=== PATIENT | male | born 1980 | race Caucasian/White ===

== ENCOUNTER 2018-05-15 23:54 | Emergency (ER) | payer OTHER ==
[2018-05-16 00:50] LABS: Absolute Lymphocytes (CBC) 1.9 K/uL (0.7-4.9); Absolute Monocytes 2.1 K/uL (0.1-1.3); Absolute Neutrophil 7.8 K/uL (1.8-8.0); Basophils % 0.6 % (0-1.3); Eosinophils % 0.3 % (0-4.4); Hematocrit 43.9 % (39.6-49.0); Lymphocytes % 16.1 % (15.3-44.8); MCH 29.3 pg (27.0-35.0); MCV 83.5 fL (80-100); MPV 9.2 fL (7.6-11.3); Monocytes % 17.7 % (3.3-12.3); RBC Red Blood Cell Count 5.25 M/uL (4.33-5.43)
[2018-05-16 00:54] LABS: Protime INR 1.23
[2018-05-16 01:14] LABS: Blood Morphology Comment NOT SEEN (NOT SEEN); Platelet Estimate ADEQ
[2018-05-16 01:35] LABS: Albumin 3.4 g/dL (3.4-5.0); Bilirubin Direct 0.2 mg/dL (0-0.2); Bilirubin Total 0.5 mg/dL (0.2-1.0); Magnesium 2.2 mg/dL (1.8-2.4); Protein, Total 7.8 g/dL (6.4-8.2)
[2018-05-16] MEDS ORDERED: CLINDAMYCIN 900MG/D5W 900 MG/50 ML BAG IV ONE (01:47)
--- NOTE | 2018-05-16 02:23 | ER ---
Nurse's Notes [facility] Name: Patricio Zamora Age: 37 yrs Sex: Male : 1980 Arrival Date: 05/15/2018 Time: 23:57 Bed 6 Private MD: Diagnosis: Cellulitis of left lower limb Presentation: 05/16 00:15 Presenting complaint: Patient states: "I've been sick for the past couple days and tl2 today I noticed a pain in my left leg and then I saw this redness and my left foot is swollen.". Transition of care: patient was not received from another setting of care. Onset of symptoms was May 14, 2018. Risk Assessment: Do you want to hurt yourself or someone else? Patient reports no desire to harm self or others. Initial Sepsis Screen: Does the patient meet any 2 criteria? No. Patient's initial sepsis screen is negative. Does the patient have a suspected source of infection? No. Patient's initial sepsis screen is negative. Care prior to arrival: None. 00:15 Method Of Arrival: Wheelchair tl2 00:15 Acuity: DOMINGO 3 tl2 Triage Assessment: 00:16 General: Appears in no apparent distress. uncomfortable, Behavior is calm, cooperative, tl2 appropriate for age. Pain: Complains of pain in left schuler and anterior aspect of left ankle Pain does not radiate. Pain currently is 6 out of 10 on a pain scale. Neuro: Level of Consciousness is awake, alert, obeys commands, Oriented to person, place, time, situation. Cardiovascular: Edema is 1+ to left ankle and left foot. Derm: Skin is pink, warm \\T\\ dry. Rash noted that is red, raised, on left schuler and anterior aspect of left ankle. Historical: - Allergies: 00:16 No Known Allergies; tl2 - Home Meds: 00:16 None [Active]; tl2 - PMHx: 00:16 None; tl2 - PSHx: 00:16 Cholecystectomy; tl2 - Immunization history:: Adult Immunizations up to date. - Social history:: Smoking status: Patient uses tobacco products, denies chronic smoking, but will smoke occasionally. - Ebola Screening: : No symptoms or risks identified at this time. Screenin:18 Abuse screen: Denies threats or abuse. Nutritional screening: No deficits noted. tl2 Tuberculosis screening: No symptoms or risk factors identified. Fall Risk None identified. Assessment: 00:20 General: Appears in no apparent distress. comfortable, obese, Behavior is calm, bp cooperative, appropriate for age. Pain: Complains of pain in lateral aspect of left calf and left schuler. Neuro: Level of Consciousness is awake, alert, obeys commands, Oriented to person, place, time, situation, Appropriate for age. Cardiovascular: No deficits noted. Respiratory: Airway is patent Respiratory effort is even, unlabored, Respiratory pattern is regular, symmetrical. GI: No signs and/or symptoms were reported involving the gastrointestinal system. : No signs and/or symptoms were reported regarding the genitourinary system. EENT: No deficits noted. Derm: Skin temperature is warm Rash noted that is red, on lateral aspect of left calf, medial aspect of left calf and left schuler. Musculoskeletal: Circulation, motion, and sensation intact. Range of motion: intact in all extremities. 01:02 Reassessment: U/S EN ROUTE. ALL CURRENT STUDIES IN PROCESS. bp 01:51 Reassessment: PT JG WITH U/S. bp 02:34 Reassessment: PT D/C HOME AMBULATORY, DX WITH LLE CELLULITIS. bp Vital Signs: 00:16 BP 136 / 80; Pulse 107; Resp 20; Temp 98.8(O); Pulse Ox 98% on R/A; Weight 136.08 kg; tl2 Height 6 ft. 2 in. (187.96 cm); Pain 6/10; 01:01 BP 115 / 78; Pulse 94; Resp 14; Pulse Ox 97% ; bp 02:37 BP 127 / 89; Pulse 91; Resp 14; Pulse Ox 99% ; bp 00:16 Body Mass Index 38.52 (136.08 kg, 187.96 cm) tl2 ED Course: 05/15 23:57 Patient arrived in ED. es 05/16 00:09 Rajan Ye PA is PHCP. cp 00:09 Rajan Melvin MD is Attending Physician. cp 00:16 Triage completed. tl2 00:16 Arm band placed on right wrist. tl2 00:18 Patient has correct armband on for positive identification. Placed in gown. Bed in low tl2 position. Call light in reach. Side rails up X 1. 00:19 Alonso Flores, SERGEY is Primary Nurse. bp 00:33 Inserted saline lock: 20 gauge in right forearm, using aseptic technique. Blood bp collected. 02:05 Patient moved back from ultrasound. jessie 02:17 US Extremity Venous Unilateral Ltd In Process Unspecified. EDMS 02:33 No provider procedures requiring assistance completed. IV discontinued, intact, bp bleeding controlled, No redness/swelling at site. Pressure dressing applied. Administered Medications: 01:46 Drug: Clindamycin 900 mg Route: IVPB; Infused Over: 30 mins; Site: right forearm; bp 02:34 Follow up: IV Status: Completed infusion; IV Intake: 50ml bp 02:31 Drug: Potassium Effervescent Tablet 50 mEq Route: PO; bp 02:32 Follow up: Response: No adverse reaction bp 02:32 Drug: Bactrim (160 mg-800 mg (DS) 1 tablet Route: PO; bp 02:32 Follow up: Response: No adverse reaction bp Intake: 02:34 IV: 50ml; Total: 50ml. bp Outcome: 02:22 Discharge ordered by MD. cp 02:33 Discharged to home ambulatory. bp 02:33 Condition: stable 02:33 Discharge instructions given to patient, Instructed on discharge instructions, follow up and referral plans. medication usage, Demonstrated understanding of instructions, follow-up care, medications, Prescriptions given X 3. 02:38 Patient left the ED. bp Signatures: Dispatcher [employer] Kate Vigil Corey, PA PA Jose D Cat jd, Taylor RN RN tl2 Alonso Flores RN RN bp
--- NOTE | 2018-05-16 02:23 | EDPHYS ---
Physician Documentation [facility] Name: Patricio Zamora Age: 37 yrs Sex: Male : 1980 Arrival Date: 05/15/2018 Time: 23:57 Bed 6 Private MD: ED Physician Rajan Melvin HPI: 05/16 00:28 This 37 yrs old Male presents to ER via Wheelchair with complaints of WANT TO cp RULE OUT BLOOD CLOT IN LT LEG. 00:28 The patient presents with pain, that is acute, swelling, tenderness. cp 00:28 The complaints affect the left lower leg. Context: resulted from an unknown cause, the cp patient can fully bear weight, the patient is able to ambulate, with mild difficulty. 00:28 Onset: The symptoms/episode began/occurred today. cp 00:28 Associated signs and symptoms: Pertinent positives: calf tenderness, warmth, Pertinent cp negatives fever, numbness, vomiting, weakness. Treatment prior to arrival includes: no previous treatment. Severity of symptoms: in the emergency department the symptoms are unchanged, despite home interventions. Historical: - Allergies: 00:16 No Known Allergies; tl2 - Home Meds: 00:16 None [Active]; tl2 - PMHx: 00:16 None; tl2 - PSHx: 00:16 Cholecystectomy; tl2 - Immunization history:: Adult Immunizations up to date. - Social history:: Smoking status: Patient uses tobacco products, denies chronic smoking, but will smoke occasionally. - Ebola Screening: : No symptoms or risks identified at this time. ROS: 00:35 Constitutional: Negative for body aches, chills, fever, poor PO intake. cp 00:35 Eyes: Negative for injury, pain, redness, and discharge. cp 00:35 ENT: Negative for drainage from ear(s), ear pain, sore throat, difficulty swallowing, difficulty handling secretions. 00:35 Cardiovascular: Negative for chest pain, palpitations. 00:35 Respiratory: Negative for cough, shortness of breath, wheezing. 00:35 Abdomen/GI: Negative for abdominal pain, nausea, vomiting, and diarrhea, black/tarry stool, rectal bleeding. 00:35 Back: Negative for pain at rest, pain with movement, radiated pain. 00:35 MS/extremity: Positive for erythema, pain, swelling, tenderness, warmth, of the left lower leg, Negative for paresthesias. 00:35 Neuro: Negative for altered mental status, headache, syncope, near syncope, weakness. 00:35 All other systems are negative. Exam: 00:40 Constitutional: The patient appears in no acute distress, alert, awake, non-toxic, well cp developed, well nourished, obese. 00:40 Head/Face: Normocephalic, atraumatic. cp 00:40 Eyes: Periorbital structures: appear normal, Conjunctiva: normal, no exudate, no injection, Sclera: no appreciated abnormality, Lids and lashes: appear normal, bilaterally. 00:40 ENT: External ear(s): are unremarkable, Nose: is normal, Mouth: Lips: moist, Oral mucosa: pink and intact, moist, Posterior pharynx: is normal, airway is patent, no erythema, no exudate. 00:40 Neck: ROM/movement: is normal, is supple, without pain, no range of motions limitations, no nuchal rigidity. 00:40 Chest/axilla: Inspection: normal, Palpation: is normal, no crepitus, no tenderness. 00:40 Cardiovascular: Rate: tachycardic, Rhythm: regular. 00:40 Respiratory: the patient does not display signs of respiratory distress, Respirations: normal, no use of accessory muscles, no retractions, no splinting, no tachypnea, labored breathing, is not present, Breath sounds: are clear throughout, no decreased breath sounds, no stridor, no wheezing. 00:40 Abdomen/GI: Inspection: abdomen appears normal, Palpation: abdomen is soft and non-tender, in all quadrants. 00:40 Musculoskeletal/extremity: Extremities: grossly normal except: noted in the left lower leg: erythema, pain, swelling, tenderness, ROM: full passive range of motion, in the left leg, Perfusion: the extremity is normally perfused throughout, Sensation intact. 00:40 Skin: cellulitis, that is moderate, well demarcated, on the left lower leg. 00:40 Neuro: Orientation: to person, place \T\ time. Mentation: lucid, able to follow commands, Cerebellar function: is grossly normal, Motor: moves all fours, strength is normal, Sensation: no obvious gross deficits, Gait: is steady. 00:45 ECG was reviewed by the Attending Physician. cp Vital Signs: 00:16 BP 136 / 80; Pulse 107; Resp 20; Temp 98.8(O); Pulse Ox 98% on R/A; Weight 136.08 kg; tl2 Height 6 ft. 2 in. (187.96 cm); Pain 6/10; 01:01 BP 115 / 78; Pulse 94; Resp 14; Pulse Ox 97% ; bp 02:37 BP 127 / 89; Pulse 91; Resp 14; Pulse Ox 99% ; bp 00:16 Body Mass Index 38.52 (136.08 kg, 187.96 cm) tl2 MDM: 00:09 Patient medically screened. cp 02:21 Data reviewed: vital signs, nurses notes, lab test result(s), radiologic studies, cp ultrasound. 02:21 Differential diagnosis: cellulitis, abscess, sepsis, DVT. Counseling: I had a detailed cp discussion with the patient and/or guardian regarding: the historical points, exam findings, and any diagnostic results supporting the discharge/admit diagnosis, lab results, radiology results, the need for outpatient follow up, a family practitioner, to return to the emergency department if symptoms worsen or persist or if there are any questions or concerns that arise at home. Response to treatment: the patient's symptoms have mildly improved after treatment, and as a result, I will discharge patient. 05/16 00:21 Order name: CBC with Diff; Complete Time: 01: cp 05/16 01:19 Interpretation: Normal except: WBC 12.0; MN% 17.7; MNA 2.1. cp 05/16 00:21 Order name: BMP; Complete Time: : cp 05/16 01:45 Interpretation: Normal except: K 3.0; GFR 75; CA 8.1. cp 05/16 00:21 Order name: PT-INR; Complete Time: 01: cp 05/16 00:21 Order name: Ptt, Activated; Complete Time: : cp 05/16 00:21 Order name: LFT's; Complete Time: :44 cp 05/16 00:21 Order name: Magnesium; Complete Time: : cp 05/16 00:19 Order name: US Extremity Venous Unilateral Ltd cp 05/16 00:21 Order name: EKG; Complete Time: 00:21 cp 05/16 00:21 Order name: EKG - Nurse/Tech; Complete Time: 00:44 cp 05/16 00:53 Order name: Manual Differential; Complete Time: 01:18 EDMA 05/16 01:19 Interpretation: Normal except: BANDS [F] 8; LYM 10; MONO 18. cp 05/16 01:19 Order name: Blood Culture Adult (2) cp 05/16 00:21 Order name: IV; Complete Time: 00:33 cp 05/16 02:21 Order name: Misc. Order: outline area of erythema; Complete Time: 02:23 cp EC:45 Rate is 93 beats/min. Rhythm is regular. FL interval is normal. QRS interval is normal. cp QT interval is normal. Interpreted by me. Reviewed by me. Administered Medications: 01:46 Drug: Clindamycin 900 mg Route: IVPB; Infused Over: 30 mins; Site: right forearm; bp 02:34 Follow up: IV Status: Completed infusion; IV Intake: 50ml bp 02:31 Drug: Potassium Effervescent Tablet 50 mEq Route: PO; bp 02:32 Follow up: Response: No adverse reaction bp 02:32 Drug: Bactrim (160 mg-800 mg (DS) 1 tablet Route: PO; bp 02:32 Follow up: Response: No adverse reaction bp Disposition: 05/16/18 02:22 Discharged to Home. Impression: Cellulitis of left lower limb. - Condition is Stable. - Discharge Instructions: Cellulitis, Adult. - Prescriptions for Clindamycin HCl 300 mg Oral Capsule - take 1 capsule by ORAL route every 6 hours for 10 days; 40 capsule. Ibuprofen 800 mg Oral Tablet - take 1 tablet by ORAL route every 8 hours As needed take with food; 30 tablet. Bactrim DS 800- 160 mg Oral Tablet - take 1 tablet by ORAL route every 12 hours for 10 days; 20 tablet. - Medication Reconciliation Form, Thank You Letter, Antibiotic Education, Prescription Opioid Use form. - Follow up: Private Physician; When: 48 Hours; Reason: Recheck today's complaints. - Problem is new. - Symptoms have improved. Addendum: 05/18/2018 06:32 Co-signature as Attending Physician, Rajan Melvin MD I agree with the assessment and c mccormack plan of care. Signatures: Dispatcher [employer] [facility] Rajan Melvin MD MD cha Page, Corey, PA PA Fany Avila RN RN tl2 Sandra, Alonso, RN RN bp Corrections: (The following items were deleted from the chart) 05/16 01:19 01:18 Normal except: WBC 12.0; MN% 17.7. cp cp 01:45 01:45 Normal except: K 3.0; GFR 75. cp cp 02:38 02:22 05/16/2018 02:22 Discharged to Home. Impression: Cellulitis of left lower limb. bp Condition is Stable. Forms are Medication Reconciliation Form, Thank You Letter, Antibiotic Education, Prescription Opioid Use. Follow up: Private Physician; When: 48 Hours; Reason: Recheck today's complaints. Problem is new. Symptoms have improved. cp
[2018-05-16] MEDS ORDERED: POTASSIUM 25 MEQ EFFERV TAB ONE (02:31)
[2018-05-16] MEDS ORDERED: SMZ./TMP. 800/160 MG TABLET ONE (02:31)
--- NOTE | 2018-05-16 08:30 | EKG ---
Test Date: 2018-05-16 Test Time: 00:37:35 Security Associate: BP MEASUREMENT RESULTS: Intervals: Rate: 93 TX: 124 QRSD: 94 QT: 354 QTc: 440 [place]: P: 56 TX: 124 QRS: 13 T: 40 INTERPRETIVE STATEMENTS: Normal sinus rhythm Possible Left atrial enlargement Incomplete right bundle branch block Borderline ECG Compared to ECG 11/19/2017 09:22:10 Short TX interval no longer present Electronically Signed On 05-16-18 08:29:48 CDT by Franky Nelson
--- NOTE | 2018-05-16 09:12 | RAD REPORT ---
EXAM DESCRIPTION: ERICA VENOUS UNI LTD05/16/2018 2:17 am CLINICAL HISTORY: left leg pain and swelling. COMPARISON: None. FINDINGS: Left common femoral, superficial femoral, popliteal and posterior tibial veins are compre ssible and demonstrate augmentation. Doppler demonstrates good flow. A 4.6 x 1.5 x 3.8 centimeter left inguinal lymph node is present. It is nonspecific but may be reacti ve in nature. This could be monitored on physical examination to assess stability/resolution IMPRESSION: No evidence of deep venous thrombosis involving the left lower extremity.
== END 2018-05-16 02:38 | disposition home or self-care (01) ==
LOC: ER 23:54
DX: L03.116 Cellulitis of left lower limb (principal); E66.9 Obesity, unspecified; Z68.38 Body mass index [BMI] 38.0-38.9, adult; Z72.0 Tobacco use
CPT/HCPCS: 36415; 80048; 80076; 83735; 85025; 85610; 85730; 87040; 93005; 93971; 96365; 99284

== ENCOUNTER 2018-05-19 22:26 | Inpatient (IN) | payer OTHER ==
--- NOTE | 2018-05-20 00:07 | ER ---
Nurse's Notes [facility] Name: Patricio Zamora Age: 37 yrs Sex: Male : 1980 Arrival Date: 05/19/2018 Time: 22:31 Bed 20 Private MD: Diagnosis: Cellulitis of left lower limb Presentation: 05/19 22:46 Presenting complaint: Patient states: Redness, swelling, drainage from left lower leg; lp1 Seen here on Friday, began antibiotics, redness to area has increased and began draining; Denies any fever at home. Transition of care: patient was not received from another setting of care. Onset of symptoms was May 19, 2018. Risk Assessment: Do you want to hurt yourself or someone else? Patient reports no desire to harm self or others. Initial Sepsis Screen: Does the patient meet any 2 criteria? No. Patient's initial sepsis screen is negative. Does the patient have a suspected source of infection? No. Patient's initial sepsis screen is negative. Care prior to arrival: None. 22:46 Method Of Arrival: Ambulatory lp1 22:46 Acuity: DOMINGO 3 lp1 Historical: - Allergies: 22:52 No Known Allergies; lp1 - Home Meds: 22:52 Bactrim DS 800-160 mg Oral tab 1 tab 2 times per day [Active]; clindamycin HCl 300 mg lp1 Oral cap 1 cap every 6 hours [Active]; - PMHx: 22:52 None; lp1 - PSHx: 22:52 Cholecystectomy; lp1 - Immunization history:: Adult Immunizations up to date. - Social history:: Smoking status: Patient uses tobacco products, smokes one-half pack cigarettes per day. - Ebola Screening: : No symptoms or risks identified at this time. Screenin:52 Abuse screen: Denies threats or abuse. Denies injuries from another. Nutritional lp1 screening: No deficits noted. Tuberculosis screening: No symptoms or risk factors identified. Fall Risk None identified. Assessment: 23:00 General: Appears in no apparent distress. comfortable, well groomed, well developed, kr2 well nourished, Behavior is calm, cooperative, appropriate for age. Pain: Complains of pain in left leg Pain does not radiate. Pain currently is 3 out of 10 on a pain scale. Quality of pain is described as aching, tender, Is continuous, Alleviated by nothing. Neuro: Level of Consciousness is awake, alert, obeys commands, Oriented to person, place, time, situation, Intact. Cardiovascular: Capillary refill < 3 seconds in bilateral fingers Patient's skin is warm and dry. Respiratory: Airway is patent Respiratory effort is even, unlabored, Respiratory pattern is regular, symmetrical. GI: Abdomen is flat, non-distended. : Denies burning with urination. EENT: Oral mucosa is moist. Derm: Skin is intact, erythma, swelling and scabbing to left lower leg. Musculoskeletal: Circulation, motion, and sensation intact. 05/20 00:00 Reassessment: Patient appears in no apparent distress at this time. Patient and/or kr2 family updated on plan of care and expected duration. Pain level reassessed. Patient is alert, oriented x 3, equal unlabored respirations, skin warm/dry/pink. 00:53 Reassessment: Patient appears in no apparent distress at this time. Patient and/or kr2 family updated on plan of care and expected duration. Pain level reassessed. Patient is alert, oriented x 3, equal unlabored respirations, skin warm/dry/pink. Vital Signs: 05/19 22:50 BP 145 / 85; Pulse 101; Resp 18; Temp 98.2(O); Pulse Ox 97% on R/A; Weight 127.01 kg; lp1 Height 6 ft. 2 in. (187.96 cm); Pain 4/10; 05/20 00:53 BP 115 / 68; Pulse 94; Resp 18; Pulse Ox 98% on R/A; kr2 02:00 BP 123 / 70; Pulse 89; Resp 18; Pulse Ox 100% on R/A; Pain 2/10; mg2 05/19 22:50 Body Mass Index 35.95 (127.01 kg, 187.96 cm) lp1 ED Course: 05/19 22:31 Patient arrived in ED. am2 22:50 Triage completed. lp1 22:50 Arm band placed on left wrist. lp1 22:51 Nilson Castillo MD is Attending Physician. tw4 23:00 Patient has correct armband on for positive identification. Bed in low position. Call kr2 light in reach. Side rails up X 1. Pulse ox on. NIBP on. Door closed. Warm blanket given. Head of bed elevated. 23:40 Inserted saline lock: 20 gauge in left antecubital area, using aseptic technique. Blood kr2 collected. 05/20 00:01 Lanette Sierra, RN is Primary Nurse. kr2 00:05 Luz Apple MD is Hospitalizing Provider. tw4 01:42 Judson Feldman, RN is Primary Nurse. mg2 09:26 Inserted saline lock: 20 gauge in left hand, using aseptic technique. em1 Administered Medications: 00:49 Drug: NS 0.9% 1000 ml Route: IV; Rate: 1 bolus; Site: left antecubital; kr2 04:08 Follow up: IV Status: Completed infusion; IV Intake: 1000ml bp 00:49 Drug: Zosyn 3.375 grams Route: IVPB; Infused Over: 60 mins; Site: left antecubital; kr2 04:08 Follow up: IV Status: Completed infusion; IV Intake: 100ml bp 01:48 CANCELLED (Other Intervention Used): vancoMYCIN 1 grams IVPB once over 2 hrs bb 04:08 Drug: vancoMYCIN 2 grams Route: IVPB; Rate: calculated rate; Site: left antecubital; bp Intake: 04:08 IV: 100ml; Total: 100ml. bp 04:08 IV: 1000ml; Total: 1100ml. bp Outcome: 00:07 Decision to Hospitalize by Provider. tw4 11:42 Patient left the ED. ph Signatures: Waylon King em1 Shikha Deshpande, RN RN lp1 Cesia Velarde RN RN Ruthann Zaidi am2 Alonso Flores RN RN bp Lanette Sierra, RN RN kr2 Nilson Castillo MD MD tw4 Judson Feldman, SERGEY RN mg2 Doreen Mcleod RN bb
--- NOTE | 2018-05-20 00:07 | EDPHYS ---
Physician Documentation [facility] Name: Patricio Zamora Age: 37 yrs Sex: Male : 1980 Arrival Date: 05/19/2018 Time: 22:31 Bed 20 Private MD: ED Physician Nilson Castillo HPI: 05/20 02:29 This 37 yrs old Male presents to ER via Ambulatory with complaints of Leg tw4 Swelling - Worsening infection. 02:29 The patient presents with swelling, tenderness. The complaints affect the lateral tw4 aspect of left calf, left calf, medial aspect of left calf and left schuler. Context: The problem was sustained at home. Onset: The symptoms/episode began/occurred. 02:30 Onset: The symptoms/episode began/occurred 3 day(s) ago. Modifying factors: The tw4 symptoms are alleviated by nothing. the symptoms are aggravated by nothing. Associated signs and symptoms: The patient has no apparent associated signs or symptoms. Treatment prior to arrival includes: antibiotics. Severity of symptoms: At their worst the symptoms were moderate, in the emergency department the symptoms are unchanged. The patient has not experienced similar symptoms in the past. Historical: - Allergies: 05/19 22:52 No Known Allergies; lp1 - Home Meds: 22:52 Bactrim DS 800-160 mg Oral tab 1 tab 2 times per day [Active]; clindamycin HCl 300 mg lp1 Oral cap 1 cap every 6 hours [Active]; - PMHx: 22:52 None; lp1 - PSHx: 22:52 Cholecystectomy; lp1 - Immunization history:: Adult Immunizations up to date. - Social history:: Smoking status: Patient uses tobacco products, smokes one-half pack cigarettes per day. - Ebola Screening: : No symptoms or risks identified at this time. ROS: 05/20 02:30 Constitutional: Negative for fever, chills, and weight loss, Cardiovascular: Negative tw4 for chest pain, palpitations, and edema, Respiratory: Negative for shortness of breath, cough, wheezing, and pleuritic chest pain, Abdomen/GI: Negative for abdominal pain, nausea, vomiting, diarrhea, and constipation. Skin: Negative for injury, rash, and discoloration, Neuro: Negative for headache, weakness, numbness, tingling, and seizure. MS/extremity: Positive for erythema, swelling, tenderness. Exam: 02:30 Constitutional: This is a well developed, well nourished patient who is awake, alert, tw4 and in no acute distress. Head/Face: Normocephalic, atraumatic. Chest/axilla: Normal chest wall appearance and motion. Nontender with no deformity. No lesions are appreciated. Cardiovascular: Regular rate and rhythm with a normal S1 and S2. No gallops, murmurs, or rubs. Normal PMI, no JVD. No pulse deficits. Respiratory: Lungs have equal breath sounds bilaterally, clear to auscultation and percussion. No rales, rhonchi or wheezes noted. No increased work of breathing, no retractions or nasal flaring. Abdomen/GI: Soft, non-tender, with normal bowel sounds. No distension or tympany. No guarding or rebound. No evidence of tenderness throughout. Back: No spinal tenderness. No costovertebral tenderness. Full range of motion. Neuro: Awake and alert, GCS 15, oriented to person, place, time, and situation. Cranial nerves II-XII grossly intact. Motor strength 5/5 in all extremities. Sensory grossly intact. Cerebellar exam normal. Normal gait. 02:30 Musculoskeletal/extremity: Extremities: noted in the lateral aspect of left calf, left calf, medial aspect of left calf and left schuler: erythema, pain, swelling, tenderness. 02:30 Psych: Awake, alert, with orientation to person, place and time. Behavior, mood, and tw4 affect are within normal limits. Vital Signs: 05/19 22:50 BP 145 / 85; Pulse 101; Resp 18; Temp 98.2(O); Pulse Ox 97% on R/A; Weight 127.01 kg; lp1 Height 6 ft. 2 in. (187.96 cm); Pain 4/10; 05/20 00:53 BP 115 / 68; Pulse 94; Resp 18; Pulse Ox 98% on R/A; kr2 02:00 BP 123 / 70; Pulse 89; Resp 18; Pulse Ox 100% on R/A; Pain 2/10; mg2 05/19 22:50 Body Mass Index 35.95 (127.01 kg, 187.96 cm) lp1 MDM: 05/19 22:51 Patient medically screened. tw4 05/20 02:30 Differential diagnosis: contusion, abrasion, tendonitis. Data reviewed: vital signs, tw4 nurses notes. Data interpreted: monitoring analyst: rhythm is normal sinus rhythm, Pulse oximetry: Interpretation: normal. Counseling: I had a detailed discussion with the patient and/or guardian regarding: the historical points, exam findings, and any diagnostic results supporting the discharge/admit diagnosis, lab results. Physician consultation: Luz Apple MD regarding admission, to the medical/surgical unit. patient's condition, need to evaluate the patient as soon as possible, and will see patient in inpatient room. 05/19 23:21 Order name: CBC with Diff tw4 05/19 23:21 Order name: CMP tw4 05/19 23:21 Order name: Blood Culture Adult (2) tw4 05/20 00:36 Order name: Manual Differential EDMS 05/20 00:53 Order name: CBC with Automated Diff EDMS 05/20 00:53 Order name: Comprehensive Metabolic Panel EDMS 05/20 00:50 Order name: CONS Pharmacy Consult EDMS 05/20 00:53 Order name: Lipase EDMS 05/20 00:53 Order name: Magnesium EDMS 05/20 00:53 Order name: Phosphorus EDMS 05/19 23:21 Order name: Saline Lock; Complete Time: 00:02 tw4 05/20 00:50 Order name: CONS Physician Consult EDMS 05/20 00:50 Order name: Consistent Carb (ADA) 1800 Leon EDMS Administered Medications: 00:49 Drug: NS 0.9% 1000 ml Route: IV; Rate: 1 bolus; Site: left antecubital; kr2 04:08 Follow up: IV Status: Completed infusion; IV Intake: 1000ml bp 00:49 Drug: Zosyn 3.375 grams Route: IVPB; Infused Over: 60 mins; Site: left antecubital; kr2 04:08 Follow up: IV Status: Completed infusion; IV Intake: 100ml bp 01:48 CANCELLED (Other Intervention Used): vancoMYCIN 1 grams IVPB once over 2 hrs bb 04:08 Drug: vancoMYCIN 2 grams Route: IVPB; Rate: calculated rate; Site: left antecubital; bp Disposition: 05/20/18 00:07 Hospitalization ordered by Luz Apple for Inpatient Admission. Preliminary diagnosis is Cellulitis of left lower limb. - Bed requested for Telemetry/MedSurg (Inpatient). - Status is Inpatient Admission. ph - Condition is Stable. - Problem is an ongoing problem. - Symptoms have worsened. UTI on Admission? No Signatures: Dispatcher [employer] EDMS Amanda Henriquez, RN SERGEY kl Doreen Mcleod, RN SERGEY bb Shikha Deshpande, RN RN lp1 Cesia Velarde, RN RN ph Fany Ramos, RN RN tl2 Alonso Flores, RN Lanette Langley RN RN kr2 Wadley, Terrence, MD MD tw4 Corrections: (The following items were deleted from the chart) 01:48 05/19 23:21 vancoMYCIN 1 grams IVPB once over 2 hrs ordered. tw4 05/20 02:31 02:30 Constitutional: Negative for fever, chills, and weight loss, Cardiovascular: tw4 Negative for chest pain, palpitations, and edema, Respiratory: Negative for shortness of breath, cough, wheezing, and pleuritic chest pain, Abdomen/GI: Negative for abdominal pain, nausea, vomiting, diarrhea, and constipation, Back: Negative for injury and pain, MS/Extremity: Negative for injury and deformity, Skin: Negative for injury, rash, and discoloration, Neuro: Negative for headache, weakness, numbness, tingling, and seizure, tw4 04:26 00:07 Hospitalization Ordered by Luz Apple MD for Inpatient Admission. Preliminary tl2 diagnosis is Cellulitis of left lower limb. Bed requested for Telemetry/MedSurg (Inpatient). Status is Inpatient Admission. Condition is Stable. Problem is an ongoing problem. Symptoms have worsened. UTI on Admission? No. tw4 10:19 04:26 05/20/2018 00:07 Hospitalization Ordered by Luz Apple MD for Inpatient kl Admission. Preliminary diagnosis is Cellulitis of left lower limb. Bed requested for [facility] ER HOLD. Status is Inpatient Admission. Condition is Stable. Problem is an ongoing problem. Symptoms have worsened. UTI on Admission? No. tl2 11:42 10:19 05/20/2018 00:07 Hospitalization Ordered by Luz Apple MD for Inpatient ph Admission. Preliminary diagnosis is Cellulitis of left lower limb. Bed requested for Telemetry/MedSurg (Inpatient). Status is Inpatient Admission. Condition is Stable. Problem is an ongoing problem. Symptoms have worsened. UTI on Admission? No. kl
[2018-05-20 00:12] LABS: Absolute Lymphocytes (CBC) 2.9 K/uL (0.7-4.9); Absolute Monocytes 2.1 K/uL (0.1-1.3); Absolute Neutrophil 10.8 K/uL (1.8-8.0); Basophils % 0.9 % (0-1.3); Eosinophils % 2.2 % (0-4.4); Hematocrit 41.8 % (39.6-49.0); MCH 29.3 pg (27.0-35.0); MCV 85.3 fL (80-100); MPV 8.9 fL (7.6-11.3); Monocytes % 12.8 % (3.3-12.3)
[2018-05-20] MEDS ORDERED: NA CHLORIDE 0.9% 1,000 ML ONE (00:43)
[2018-05-20] MEDS ORDERED: PIPER/TAZO/NS 3.375gm 3.375 GM/100 ML BAG ONE ×2 (00:43→05:02)
[2018-05-20] MEDS ORDERED: ONDANSETRON 4 MG/2 ML VIAL IV PRN (00:46)
[2018-05-20 00:52] LABS: Albumin 3.1 g/dL (3.4-5.0); Bilirubin Total 0.4 mg/dL (0.2-1.0); Potassium 3.1 mmol/L (3.5-5.1)
[2018-05-20] MEDS: NA CHLORIDE 0.9% 1,000 ML IV SCH ×2 (01:00→12:03)
[2018-05-20 01:02] LABS: Blood Morphology Comment NOT SEEN (NOT SEEN); Platelet Estimate ADEQ
[2018-05-20] MEDS ORDERED: VANCOMYCIN 2 GM in NA CHLORIDE 0.9% 500 ML IVPB SCH (02:00)
[2018-05-20] MEDS ORDERED: VANCOMYCIN 1 GM/VIAL ONE (02:52)
[2018-05-20] MEDS ORDERED: NA CHLORIDE 0.9% 250 ML ONE (02:52)
[2018-05-20] MEDS ORDERED: PIPER/TAZO/NS 3.375gm 3.375 GM/100 ML BAG IVPB SCH (06:00)
[2018-05-20] MEDS ORDERED: ACETAMINOPHEN 325 MG TABLET ONE (07:40)
[2018-05-20] MEDS ORDERED: ACETAMINOPHEN 500 MG TAB ONE (07:42)
[2018-05-20] MEDS: ACETAMINOPHEN 500 MG TAB PO PRN ×2 (07:55→18:58)
[2018-05-20] MEDS ORDERED: MORPHINE 4 MG/ML SYR ONE (08:33)
[2018-05-20] MEDS: MORPHINE 4 MG/ML SYR IV PRN ×4 (08:43→22:30)
[2018-05-20] MEDS: PIPER/TAZO/NS 3.375gm 3.375 GM/100 ML BAG IVPB SCH ×2 (09:00→17:36)
--- NOTE | 2018-05-20 09:27 | P.HP ---
Certification for Inpatient Patient admitted to: Inpatient With expected LOS: >2 Midnights Patient will require the following post-hospital care: None Practitioner: I am a practitioner with admitting privileges, knowledge of patient current condition, hospital course, and medical plan of care. Services: Services provided to patient in accordance with Admission requirements found in Title 42 Section 412.3 of the Code of Federal Regulations Patient History Date of Service: 05/20/18 Reason for admission: Left lower extremity cellulitis History of Present Illness: Patient is a 37-year-old gentleman who came to the hospital with cellulitis of the left lower extremity. Patient's left leg has become erythematous and edematous. Patient's left leg has slowly worsened. Patient came to the hospital for further evaluation. Patient states he was wearing boots and it scraped his left leg. He is not sure if it happened while working out. However he did seem to a slough off the 1st layer of his skin on the back of his leg. He has developed a cellulitis. He has been admitted to the hospital for further evaluation. Allergies No Known Allergies Allergy (Unverified 05/20/18 07:36) Home Medications: Clindamycin HCl 300 mg PO Q6H 05/20/18 Smz./Tmp. [Bactrim Ds 800 MG/160 MG*] 160 - 800 mg PO BID 05/20/18 - Past Medical/Surgical History Past Medical History: Patient denies medical history -: CHOLECYSTECTOMY - Family History Father Medical History: Other (see notes) Notes: LEUKEMIA - Social History Smoking Status: Current every day smoker Alcohol use: No CD- Drugs: No Caffeine use: Yes Place of Residence: Home Review of Systems 10-point ROS is otherwise unremarkable Physical Examination - Vital Signs Temperature: 99.9 F Blood Pressure: 125/53 Pulse: 100 Respirations: 14 Pulse Ox (%): 96 - Physical Exam General: Alert, In no apparent distress, Oriented x3 HEENT: Atraumatic, PERRLA, Mucous membr. moist/pink, EOMI, Sclerae nonicteric Neck: Supple, 2+ carotid pulse no bruit, No LAD, Without JVD or thyroid abnormality Respiratory: Clear to auscultation bilaterally, Normal air movement Cardiovascular: Regular rate/rhythm, Normal S1 S2, No murmurs Gastrointestinal: Normal bowel sounds, Soft and benign, Non-distended, No tenderness, No rebound, No guarding Musculoskeletal: No clubbing, No swelling, No tenderness Integumentary: No rashes, Skin lesion, Tenderness/swelling, Erythema Neurological: Normal gait, Normal speech, Normal strength at 5/5 x4 extr, Normal tone, Sensation intact, Cranial nerves 3-12 intact, Normal affect Lymphatics: No axilla or inguinal lymphadenopathy - Studies Laboratory Data (last 24 hrs) 05/19/18 23:55: Sodium 141, Potassium 3.1 L, BUN 9, Creatinine 1.10, Glucose 99 , Total Bilirubin 0.4, AST 35, ALT 90 H, Alkaline Phosphatase 127 H 05/19/18 23:55: WBC 16.3 H D, Hgb 14.3, Hct 41.8, Plt Count 407 H D Assessment & Plan - Problems (Diagnosis) (1) Cellulitis of left lower extremity Current Visit: Yes Status: Acute - Plan 1. Continue with IV antibiotic 2. Continue with local wound care 3. Wound care consultation 4. Gentle IV hydration 5. Monitor CBC 6. Strict blood sugar monitoring 7. Pain control 8. GI and DVT prophylaxis Discharge Plan: Home Plan to discharge in: Greater than 2 days - Advance Directives Does patient have a Living Will: No Does patient have a Durable POA for Healthcare: No - Code Status/Comfort Care Code Status Assessed: Yes Code Status: Full Code Critical Care: No Time Spent Managing PTS Care (In Minutes): 55
[2018-05-20 11:34] LABS: Absolute Lymphocytes (CBC) 2.9 K/uL (0.7-4.9); Absolute Monocytes 1.9 K/uL (0.1-1.3); Absolute Neutrophil 10.2 K/uL (1.8-8.0); Basophils % 1.3 % (0-1.3); Eosinophils % 1.5 % (0-4.4); Hematocrit 37.9 % (39.6-49.0); Lymphocytes % 18.9 % (15.3-44.8); MCH 29.4 pg (27.0-35.0); MCV 84.8 fL (80-100); MPV 8.4 fL (7.6-11.3); Monocytes % 12.5 % (3.3-12.3); RBC Red Blood Cell Count 4.46 M/uL (4.33-5.43)
[2018-05-20 11:48] LABS: Albumin 2.7 g/dL (3.4-5.0); Bilirubin Total 0.4 mg/dL (0.2-1.0); Magnesium 2.1 mg/dL (1.8-2.4); Phosphorus 2.8 mg/dL (2.5-4.9); Potassium 3.7 mmol/L (3.5-5.1); Protein, Total 7.2 g/dL (6.4-8.2)
[2018-05-20 12:35] LABS: Blood Morphology Comment NOT SEEN (NOT SEEN); Platelet Estimate ADEQ
[2018-05-20] MEDS: VANCOMYCIN 2 GM in NA CHLORIDE 0.9% 500 ML IVPB SCH (14:56)
--- NOTE | 2018-05-20 15:44 | P.PN ---
Date of Service: 05/20/18 Patient seen and examined chart reviewed and case discussed with RN patient is admitted for lower extremity cellulitis. Physical exam vital signs stable afebrile General awake alert oriented x3, obese male in some mild distress CV S1-S2 no murmurs Respiratory clear to auscultation bilaterally no wheezing Abdomen soft nontender nondistended positive bowel sounds. Extremities no clubbing cyanosis. + lower extremity edema. Neuro nonfocal skin right lower extremity erythema and warmth Labs reviewed Assessment and plan 1. Left lower extremity cellulitis: Will continue IV antibiotics and follow up on cultures.
--- NOTE | 2018-05-20 17:10 | CON ---
INFECTIOUS DISEASE CONSULT History Of Present Illness: This is a 37-year-old male with no other medical history, coming in with left lower extremity cellulitis. The patient denies any history of diabetes mellitus. Prior histor y of infected infection in the lower leg, has been treated in the past with Bactrim and clindamycin. Continue to have discomfort in the leg. Past Medical History: None. Surgical History: Cholecystectomy 12 years ago. Social History: Nonsmoker, nondrinker. Family History: Noncontributory. Medication: Vancomycin and Zosyn. See MARs for other medication. Allergies: NO KNOWN DRUG ALLERGIES. Review of Systems: A 10-point review was performed. Physical Examination: General: This is a 37-year-old male, lying in bed, not in any acute cardiopulmonary distress. Vital Signs: Temperature 97, pulse 87, respiration 24, blood pressure 140/84. HEENT: Unremarkable. Neck: Supple. Lungs: Clear to auscultation. Heart: S1, S2. Regular. Abdomen: Soft, nontender. Bowel sounds positive. Extremity: 2+ edema with erythematous changes to the left leg, increased tenderness and warmth. Laboratory Data: Shows WBC 15.5, hemoglobin 13.1, platelets 386. Chemistry shows sodium 141, potass ium 3.5, chloride 108, bicarb 25, BUN 8, creatinine 1, glucose is 84. Micro data: Blood cultures ar e pending. Assessment And Plan: Left lower extremity cellulitis with leukocytosis. Continue IV antibiotic, can be switched to oral once the blood cultures are negative and leukocytosis has subsided. Total cours e is 2 weeks. We will follow the patient as needed. NF/MODL Voice ID: [id number] Report ID: [id number]
[2018-05-21] MEDS: PIPER/TAZO/NS 3.375gm 3.375 GM/100 ML BAG IVPB SCH ×3 (00:18→16:31)
[2018-05-21] MEDS: VANCOMYCIN 2 GM in NA CHLORIDE 0.9% 500 ML IVPB SCH ×2 (02:36→15:00)
[2018-05-21] MEDS: NA CHLORIDE 0.9% 1,000 ML IV SCH ×2 (02:43→16:35)
[2018-05-21] MEDS: MORPHINE 4 MG/ML SYR IV PRN ×5 (02:57→22:57)
[2018-05-21] MEDS: ACETAMINOPHEN 500 MG TAB PO PRN (03:04)
[2018-05-21 04:30] LABS: Absolute Lymphocytes (CBC) 2.1 K/uL (0.7-4.9); Absolute Monocytes 1.7 K/uL (0.1-1.3); Absolute Neutrophil 7.6 K/uL (1.8-8.0); Basophils % 1.3 % (0-1.3); Eosinophils % 1.9 % (0-4.4); Hematocrit 36.9 % (39.6-49.0); Lymphocytes % 17.6 % (15.3-44.8); MCH 29.4 pg (27.0-35.0); MCV 85.5 fL (80-100); MPV 8.1 fL (7.6-11.3); Monocytes % 14.2 % (3.3-12.3); RBC Red Blood Cell Count 4.32 M/uL (4.33-5.43)
[2018-05-21 04:39] LABS: Albumin 2.6 g/dL (3.4-5.0); Bilirubin Total 0.6 mg/dL (0.2-1.0); Protein, Total 7.3 g/dL (6.4-8.2)
--- NOTE | 2018-05-21 07:06 | EKG ---
Test Date: 2018-05-20 Test Time: 16:22:03 Net Ui Developer: JONATHAN MEASUREMENT RESULTS: Intervals: Rate: 102 MA: 138 QRSD: 100 QT: 362 QTc: 471 Ramer: P: 52 MA: 138 QRS: 10 T: 32 INTERPRETIVE STATEMENTS: Sinus tachycardia Otherwise normal ECG Compared to ECG 05/16/2018 00:37:35 Sinus rhythm no longer present Incomplete right bundle-branch block no longer present Electronically Signed On 05-21-18 07:05:33 CDT by Lewis Hodge
--- NOTE | 2018-05-21 07:53 | RAD REPORT ---
EXAM DESCRIPTION: Bryant Single View05/21/2018 6:33 am CLINICAL HISTORY: Cough COMPARISON: October 2017 FINDINGS: The lungs appear clear of acute infiltrate. The heart is normal size IMPRESSION: No acute abnormalities displayed
[2018-05-21] MEDS: VANCOMYCIN 2.25 GM in NA CHLORIDE 0.9% 500 ML IVPB SCH (16:31)
--- NOTE | 2018-05-21 19:09 | PN ---
Date of Progress Note: 05/21/2018 Subjective: The patient seen and examined. Chart reviewed and case discussed with RN. The patient states his swelling has improved as the erythema in his left lower leg pain is controlled with medica tions. No chills, fevers. Review of Systems: Negative except as above. Medications: List reviewed. Physical Examination: Vital Signs: Temperature 99, heart rate 97, blood pressure 143/84, respirations 18, O2 of 99% on maria dolores m air. General: Awake, alert, oriented x3, not in any acute distress. Obese male. BMI 35.9. CV: S1 and S2. No murmurs. Regular rate and rhythm. Peripheral pulses present. Respiratory: Clear to auscultation bilaterally. No wheezing. Gastrointestinal: Abdomen is soft, nontender, nondistended. Positive bowel sounds. Extremities: No clubbing, cyanosis. Left lower extremity edema. Neurologic: Nonfocal. Skin: Left lower extremity erythema, improving, warm to touch. Laboratory Data: Sodium 139, potassium 4, chloride 106, CO2 of 28, BUN 7, creatinine 1, glucose 100, calcium 8.1. WBC 11.7, H and H are 12.7 and 36.9, platelets 397. Blood cultures, no growth to date . Chest x-ray shows no acute abnormalities, personally reviewed. Assessment And Plan: A 37-year-old male with: 1.Left lower extremity cellulitis. 2.Obesity. BMI 35.1. 3.Hypokalemia, replaced. 4.Elevated liver enzymes, likely due to fatty liver disease. I would recommend outpatient ultrasoun d and diet modification. 5.Moderate protein-calorie malnutrition. Albumin 2.6. Plan: Continue IV antibiotics. Blood cultures are negative. White count is trending down. The pat ient's erythema and swelling are improving. We will continue with ambulation. Likely discharge in n ext 24 to 48 hours once improves. SA/MODL Voice ID: [id number] Report ID: [id number]
--- NOTE | 2018-05-21 19:25 | PN ---
Subjective: The patient lying in bed. Denies any headache, nausea, vomiting, chest pain, abdominal pain, constipation, or diarrhea. Continue to have discomfort in the left leg, especially when he sta nds. Objective: Vital Signs: Temperature 99, pulse 97, respiration 18, blood pressure 143/84. Lungs: Clear to auscultation. Heart: S1, S2. Regular. Abdomen: Soft, nontender. Bowel sounds positive. Extremity: Erythematous changes with edematous changes noted on the left leg all the way up to knee. Laboratory Data: WBC is coming down 11.7, hemoglobin 12.7, platelets 397. Chemistry shows sodium 13 9, potassium 4, chloride 106, bicarb 28, BUN 7, creatinine 1, glucose is 84. Blood cultures are nega tive. Current Medications: Include Zosyn and vancomycin. Assessment And Plan: Left lower extremity cellulitis. Leukocytosis improving. Lower extremity disc omfort is improving. Continue antibiotic and supportive care, total course of 2 weeks. We will foll ow the patient as needed. NF/MODL Voice ID: [id number] Report ID: [id number]
[2018-05-22] MEDS: PIPER/TAZO/NS 3.375gm 3.375 GM/100 ML BAG IVPB SCH ×3 (01:36→19:00)
[2018-05-22] MEDS: MORPHINE 4 MG/ML SYR IV PRN ×3 (03:11→15:46)
[2018-05-22] MEDS: VANCOMYCIN 2.25 GM in NA CHLORIDE 0.9% 500 ML IVPB SCH ×2 (05:03→15:45)
[2018-05-22] MEDS: NA CHLORIDE 0.9% 1,000 ML IV SCH ×2 (06:20→19:40)
[2018-05-22 06:45] LABS: Albumin 2.6 g/dL (3.4-5.0); Bilirubin Total 0.5 mg/dL (0.2-1.0); Potassium 3.8 mmol/L (3.5-5.1); Protein, Total 7.7 g/dL (6.4-8.2)
[2018-05-22 06:48] LABS: Absolute Lymphocytes (CBC) 2.4 K/uL (0.7-4.9); Absolute Monocytes 1.4 K/uL (0.1-1.3); Absolute Neutrophil 6.2 K/uL (1.8-8.0); Basophils % 1.2 % (0-1.3); Eosinophils % 2.2 % (0-4.4); Hematocrit 37.1 % (39.6-49.0); Lymphocytes % 23.2 % (15.3-44.8); MCH 29.7 pg (27.0-35.0); MCV 85.1 fL (80-100); Monocytes % 13.8 % (3.3-12.3); RBC Red Blood Cell Count 4.35 M/uL (4.33-5.43)
[2018-05-22] MEDS: HYDROCODONE/APAP 7.5/325 MG TAB PO PRN (19:57)
--- NOTE | 2018-05-22 21:27 | PN ---
Subjective: Patient lying in bed, continued to have pain in his left leg especially when standing. Objective: Vital signs: Temperature 97.8, pulse 96, respirations 18, blood pressure 145/83. Denies any headache, nausea, vomiting, chest pain, abdominal pain, constipation, diarrhea. Lungs: Clear t o auscultation. Heart: S1, S2. Regular. Abdomen: Soft, nontender. Bowel sounds positive. Extre mity: Left lower extremity with erythematous changes and edematous changes and increased warmth, oth erwise unremarkable. Laboratory Data: WBC 10.3, hemoglobin 12.9, platelets are 465. Micro data; blood cultures, no growt h. Current Medications: Include Zosyn and vancomycin. Assessment And Plan: Left lower extremity cellulitis. Leukocytosis has resolved. Continue antibiot ic. Can be switched to oral antibiotic on discharge. We will consider starting the patient on Levaq uin and doxycycline. Keep leg elevated. Continue supportive care. NF/MODL Voice ID: [id number] Report ID: [id number]
--- NOTE | 2018-05-22 23:12 | PN ---
Date of Progress Note: 05/22/2018 Subjective: The patient seen and examined. Chart reviewed and case discussed with RN and Dr. Call . The patient still having significant amount of pain and swelling when getting up, difficult for hi m to ambulate, redness is improved, but not completely resolved. Review of Systems: Negative except as above. Medications: List reviewed. Physical Examination: Vital Signs: Temperature 97.8, heart rate 96, blood pressure 145/83, respirations 18, O2 95% on room air. General: Awake, alert, oriented x3. Some mild distress, obese male. BMI 35.9. CV: S1, S2. No murmurs. Regular rate and rhythm. Peripheral pulses present. Respiratory: Moving air well bilaterally. No wheezing. Gastrointestinal: Abdomen is soft, nontender, nondistended. Positive bowel sounds. Extremities: No clubbing, cyanosis. Left lower extremity edema. Skin: Left lower extremity erythema, warm to the touch. Some mild tenderness to palpation. Neuro: Nonfocal. Laboratory Data: Sodium 139, potassium 3.8, chloride 105, CO2 29, BUN 7, creatinine 1, glucose 91, c alcium 8, AST 48, ALT 126, total bilirubin 0.5, alkaline phosphatase 121, albumin 2.6. WBC 10.3, H a nd H 12.9 and 37.1, platelets 265, neutrophils 59%, monocytes 13%. Blood cultures, no growth to date . Assessment And Plan: A 37-year-old male with: 1.Left lower extremity cellulitis, acute. Still having significant amount of pain, swelling, and er ythema, which has slightly improved. We will continue with IV antibiotics. Stool cultures negative to date. We will continue elevation and use ice pack. 2.Elevated liver enzymes, likely due to fatty liver disease. We will obtain abdominal ultrasound. Check hepatitis panel. 3.Obesity. BMI 35. 4.Hypokalemia, replaced. 5.Moderate protein-calorie malnutrition. Albumin 2.6. Plan: Continue IV antibiotics. Follow up on cultures, likely discharge in the next 24 to 48 hours o nce continues to improve. Encourage ambulation as tolerated. SA/MODL Voice ID: [id number] Report ID: [id number]
[2018-05-23] MEDS: PIPER/TAZO/NS 3.375gm 3.375 GM/100 ML BAG IVPB SCH ×2 (00:39→09:15)
[2018-05-23] MEDS: NA CHLORIDE 0.9% 1,000 ML IV SCH ×2 (00:40→09:00)
[2018-05-23] MEDS: VANCOMYCIN 2.25 GM in NA CHLORIDE 0.9% 500 ML IVPB SCH ×2 (04:08→16:00)
[2018-05-23 04:32] LABS: ALT/SGPT 107 U/L (12-78); AST/SGOT 40 U/L (15-37); Albumin 2.5 g/dL (3.4-5.0); Alkaline Phosphatase 113 U/L (45-117); BUN Blood Urea Nitrogen 8 mg/dL (7-18); Bicarbonate 22 mmol/L (21-32); Bilirubin Total 0.5 mg/dL (0.2-1.0); Glucose Level 88 mg/dL (74-106); Potassium 4.1 mmol/L (3.5-5.1); Protein, Total 7.8 g/dL (6.4-8.2); Sodium Level 140 mmol/L (136-145)
[2018-05-23] MEDS: HYDROCODONE/APAP 7.5/325 MG TAB PO PRN (05:55)
[2018-05-23 06:49] LABS: Absolute Lymphocytes (CBC) 2.4 K/uL (0.7-4.9); Absolute Monocytes 1.3 K/uL (0.1-1.3); Absolute Neutrophil 6.8 K/uL (1.8-8.0); Eosinophils % 2.2 % (0-4.4); Hematocrit 37.7 % (39.6-49.0); Lymphocytes % 22.1 % (15.3-44.8); MCH 30.1 pg (27.0-35.0); MCV 85.8 fL (80-100); MPV 7.8 fL (7.6-11.3); Monocytes % 11.6 % (3.3-12.3); RBC Red Blood Cell Count 4.39 M/uL (4.33-5.43)
--- NOTE | 2018-05-23 12:18 | P.DS ---
Admission Date: 05/20/18 Discharge Date: 05/23/18 Disposition: ROUTINE DISCHARGE Discharge Condition: GOOD Reason for Admission: Left lower extremity cellulitis Brief History of Present Illness: pt AW left LE cellulits. Was tX with Bactrim and Clinda. Hospital Course: No problems during stay. Improved. Pt alert oriented. and ambulating. Left left area of cellulitis present. improving as per pt.VS stable WBC normal. cultures neg.chest cleat. CVS HS normal Vital Signs/Physical Exam: Temp Pulse Resp BP Pulse Ox 97.8 F 74 18 149/75 H 98 05/23/18 04:00 05/23/18 04:00 05/23/18 04:00 05/23/18 04:00 05/23/18 04:00 Laboratory Data at Discharge: WBC 10.8 K/uL (4.3-10.9) 05/23/18 05:41 Hgb 13.2 g/dL (13.6-17.9) L 05/23/18 05:41 Hct 37.7 % (39.6-49.0) L 05/23/18 05:41 Plt Count 461 K/uL (152-406) H 05/23/18 05:41 Sodium 140 mmol/L (136-145) 05/23/18 03:05 Potassium 4.1 mmol/L (3.5-5.1) 05/23/18 03:05 BUN 8 mg/dL (7-18) 05/23/18 03:05 Creatinine 0.90 mg/dL (0.55-1.3) 05/23/18 03:05 Glucose 88 mg/dL (74-106) 05/23/18 03:05 Phosphorus 2.8 mg/dL (2.5-4.9) 05/20/18 11:20 Magnesium 2.1 mg/dL (1.8-2.4) 05/20/18 11:20 Total Bilirubin 0.5 mg/dL (0.2-1.0) 05/23/18 03:05 AST 40 U/L (15-37) H 05/23/18 03:05 ALT 107 U/L (12-78) H 05/23/18 03:05 Alkaline Phosphatase 113 U/L (45-117) 05/23/18 03:05 Lipase 348 U/L (73-393) 05/20/18 11:20 Home Medications: Smz./Tmp. [Bactrim Ds 800 MG/160 MG*] 160 - 800 mg PO BID 05/20/18 Levofloxacin [Levaquin] 500 mg PO DAILY #10 tablet 05/23/18 New Medications: Levofloxacin [Levaquin] 500 mg PO DAILY #10 tablet Patient Discharge Instructions: f/u with primary care in 1 wk. Resume bactrim. Diet: Regular Activity: Ad radha
[2018-05-26 03:17] LABS: HBsAG Nonreactive (Nonreactive); Hepatitis A IgM Antibody Nonreactive
== END 2018-05-23 16:57 | disposition home or self-care (01) | DRG 603 ==
LOC: ER 22:26 → ERHOLD 05-20 00:55 → 4TH 05-20 11:32
PROVIDERS: ADMIT Hospitalist; ATTEND Internal Medicine Sleep Medicine
DX: L03.116 Cellulitis of left lower limb (principal); E44.0 Moderate protein-calorie malnutrition; K76.0 Fatty (change of) liver, not elsewhere classified; E66.9 Obesity, unspecified; Z68.35 Body mass index [BMI] 35.0-35.9, adult; E87.6 Hypokalemia; F17.210 Nicotine dependence, cigarettes, uncomplicated
CPT/HCPCS: 36415; 71045; 80053; 80074; 80202; 82962; 83690; 83735; 84100; 85025; 87040; 93005; 96365; 96366; 96375; 99284; J2543; J7030

== ENCOUNTER 2021-01-24 17:16 | Observation (INO) | payer OTHER ==
[2021-01-24 21:21] LABS: Absolute Lymphocytes (CBC) 3.4 K/uL (0.7-4.9); Hematocrit 42.8 % (39.6-49.0); Lymphocytes % 21.8 % (15.3-44.8); RBC Red Blood Cell Count 5.31 M/uL (4.33-5.43)
[2021-01-24 21:26] LABS: Protime INR 1.15
[2021-01-24 21:41] LABS: ALT/SGPT 54 U/L (12-78); AST/SGOT 24 U/L (15-37); Albumin 3.9 g/dL (3.4-5.0); Alkaline Phosphatase 112 U/L (45-117); BUN Blood Urea Nitrogen 12 mg/dL (7-18); Bicarbonate 29 mmol/L (21-32); Bilirubin Direct 0.2 mg/dL (0-0.2); Bilirubin Total 0.5 mg/dL (0.2-1.0); Glucose Level 95 mg/dL (74-106); Magnesium 2.4 mg/dL (1.8-2.4); NT PRO-BNP 35 pg/mL (<125); Potassium 3.5 mmol/L (3.5-5.1); Protein, Total 7.9 g/dL (6.4-8.2); Sodium Level 141 mmol/L (136-145); Troponin (Emerg Dept Use Only) < 0.02 ng/mL (0.0-0.045)
--- NOTE | 2021-01-24 22:40 | ER ---
Nurse's Notes [facility] Name: Patricio Zamora Age: 40 yrs Sex: Male : 1980 Arrival Date: 01/24/2021 Time: 17:17 Bed 13 Private MD: Diagnosis: Chest pain, unspecified Presentation: 01/24 17:39 Chief complaint: Patient states: Chest pain x 3 days, radiates to the L shoulder. ca1 Today, feels lightheaded, cold sweats. 17:39 Method Of Arrival: Ambulatory ca1 17:41 Coronavirus screen: Client denies travel out of the [place] in the last 14 days. At this ca1 time, the client does not indicate any symptoms associated with coronavirus-19. Ebola Screen: Patient negative for fever greater than or equal to 101.5 degrees Fahrenheit, and additional compatible Ebola Virus Disease symptoms Patient denies exposure to infectious person. Patient denies travel to an Ebola-affected area in the 21 days before illness onset. No symptoms or risks identified at this time. Initial Sepsis Screen: Does the patient meet any 2 criteria? No. Patient's initial sepsis screen is negative. Does the patient have a suspected source of infection? No. Patient's initial sepsis screen is negative. Risk Assessment: Do you want to hurt yourself or someone else? Patient reports no desire to harm self or others. Onset of symptoms was January 24, 2021. 17:41 Acuity: DOMINGO 3 ca1 Historical: - Allergies: 17:43 No Known Allergies; ca1 - Home Meds: 17:43 None [Active]; ca1 - PMHx: 17:43 None; ca1 - PSHx: 17:43 Cholecystectomy; ca1 - Immunization history:: Client reports having NOT received the Covid vaccine. Flu vaccine is not up to date. - Social history:: Smoking status: Patient/guardian denies using tobacco, the patient reports quitting approximately 1.5 years ago, Patient/guardian denies using alcohol, street drugs, The patient lives with family. - Family history:: not pertinent. Screenin:00 Abuse screen: Denies threats or abuse. Nutritional screening: No deficits noted. bb Tuberculosis screening: No symptoms or risk factors identified. Fall Risk None identified. Assessment: 21:00 General: Appears in no apparent distress. uncomfortable, Behavior is calm, cooperative. bb Pain: Complains of pain in chest Pain does not radiate. Pain began several weeks ago, pain is intermittent and moves in different locations. Neuro: Level of Consciousness is awake, alert, obeys commands, Oriented to person, place, time, situation. Cardiovascular: Reports chest pain, Heart tones present Capillary refill < 3 seconds Patient's skin is warm and dry. Respiratory: Respiratory effort is even, unlabored, Respiratory pattern is regular, Breath sounds are clear bilaterally. GI: No signs and/or symptoms were reported involving the gastrointestinal system. Derm: Skin is pink, warm \T\ dry. Musculoskeletal: Circulation, motion, and sensation intact. Capillary refill < 3 seconds. 22:39 Reassessment: Patient is alert, oriented x 3, equal unlabored respirations, skin bb warm/dry/pink. pt discussed findings and recommendations with Dr Shirley pt to be admitted for further testing and evaluation. Pt verbalized understanding of and agrees to plan of cared. 01/25 00:58 Reassessment: pt appears to be sleeping, eyes closed, resp unlabored, now in ED hold bb status. Vital Signs: 01/24 17:41 BP 163 / 101; Pulse 101; Resp 18 S; Temp 97; Pulse Ox 100% on R/A; Weight 147.42 kg ca1 (R); Height 6 ft. 2 in. (187.96 cm) (R); Pain 4/10; 18:45 BP 157 / 104; Pulse 94; Resp 16 S; Pulse Ox 99% ; ca1 21:45 BP 150 / 90; Pulse 93; Resp 18 S; Pulse Ox 100% on R/A; bb 01/25 00:59 BP 151 / 87; Pulse 78; Resp 12 S; Pulse Ox 98% on R/A; bb 01/24 17:41 Body Mass Index 41.73 (147.42 kg, 187.96 cm) ca1 ED Course: 01/24 17:17 Patient arrived in ED. am2 17:42 Triage completed. ca1 17:43 Arm band placed on right wrist. ca1 20:59 Luz Landaverde MD is Attending Physician. ma2 21:00 Patient has correct armband on for positive identification. Bed in low position. Call bb light in reach. Side rails up X 1. 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 Pulse ox on. NIBP on. Warm blanket given. 21:00 Patient maintains SpO2 saturation greater than 95% on room air. bb 21:10 Initial lab(s) drawn, by me, sent to lab. Inserted saline lock: 20 gauge in right bb antecubital area, using aseptic technique. Blood collected. 21:19 Jose Carr is Primary Nurse. ad5 21:40 XRAY Chest (1 view) In Process Unspecified. EDMS 22:39 Hubert Hernandez DO is Hospitalizing Provider. ma2 22:40 Patient admitted, IV remains in place. bb 01/25 01:00 No provider procedures requiring assistance completed. bb Administered Medications: 01/24 22:40 Drug: Aspirin Chewable Tablet 324 mg Route: PO; bb 23:00 Follow up: Response: No adverse reaction bb Outcome: 22:39 Decision to Hospitalize by Provider. ma2 22:40 Instructed on the need for admit. bb 01/25 01:00 Admitted to ER Hold. Please see [facility] for further documentation. bb Condition: stable 09:54 Patient left the ED. ap3 Signatures: Dispatcher [employer] EDMS Doreen Mcleod RN RN bb Ruthann Zaidi Mohammad, MD MD ma2 Ruthann Bearden RN RN ap3 Ivy Pressley RN RN ca1 Jose Carr ad5 Corrections: (The following items were deleted from the chart) 01/24 17:42 17:39 Chief complaint: Patient states: Chest pain x 3 days, radiates to the L shoulder. ca1 Today, feels lightheaded and SOB ca1
--- NOTE | 2021-01-24 22:40 | EDPHYS ---
Physician Documentation [facility] Name: Patricio Zamora Age: 40 yrs Sex: Male : 1980 Arrival Date: 01/24/2021 Time: 17:17 Bed 13 Private MD: ED Physician Luz Landaverde HPI: 01/24 21:56 This 40 yrs old Male presents to ER via Ambulatory with complaints of Chest ma2 Pain, Shoulder Pain - left. 21:56 The patient or guardian reports chest pain that is located primarily in the substernal ma2 area. Onset: gradually, 3 day(s) ago. Associated signs and symptoms: Pertinent negatives: cough, dizziness, headache, lower extremity swelling. The chest pain is described as aching. Severity of pain: At its worst the pain was moderate in the emergency department the pain is unchanged. The patient has not experienced similar symptoms in the past. Historical: - Allergies: 17:43 No Known Allergies; ca1 - Home Meds: 17:43 None [Active]; ca1 - PMHx: 17:43 None; ca1 - PSHx: 17:43 Cholecystectomy; ca1 - Immunization history:: Client reports having NOT received the Covid vaccine. Flu vaccine is not up to date. - Social history:: Smoking status: Patient/guardian denies using tobacco, the patient reports quitting approximately 1.5 years ago, Patient/guardian denies using alcohol, street drugs, The patient lives with family. - Family history:: not pertinent. ROS: 21:56 Constitutional: Negative for fever, chills, and weight loss. ma2 21:56 All other systems are negative. Exam: 21:56 Constitutional: This is a well developed, well nourished patient who is awake, alert, ma2 and in no acute distress. Neck: Trachea midline, no thyromegaly or masses palpated, and no cervical lymphadenopathy. Supple, full range of motion without nuchal rigidity, or vertebral point tenderness. No Meningismus. Chest/axilla: Normal chest wall appearance and motion. Nontender with no deformity. No lesions are appreciated. Cardiovascular: Regular rate and rhythm with a normal S1 and S2. No gallops, murmurs, or rubs. Normal PMI, no JVD. No pulse deficits. Respiratory: Lungs have equal breath sounds bilaterally, clear to auscultation and percussion. No rales, rhonchi or wheezes noted. No increased work of breathing, no retractions or nasal flaring. Abdomen/GI: Soft, non-tender, with normal bowel sounds. No distension or tympany. No guarding or rebound. No evidence of tenderness throughout. Skin: Warm, dry with normal turgor. Normal color with no rashes, no lesions, and no evidence of cellulitis. MS/ Extremity: Pulses equal, no cyanosis. Neurovascular intact. Full, normal range of motion. Neuro: Awake and alert, GCS 15, oriented to person, place, time, and situation. Cranial nerves II-XII grossly intact. Motor strength 5/5 in all extremities. Sensory grossly intact. Cerebellar exam normal. Normal gait. Vital Signs: 17:41 BP 163 / 101; Pulse 101; Resp 18 S; Temp 97; Pulse Ox 100% on R/A; Weight 147.42 kg ca1 (R); Height 6 ft. 2 in. (187.96 cm) (R); Pain 4/10; 18:45 BP 157 / 104; Pulse 94; Resp 16 S; Pulse Ox 99% ; ca1 21:45 BP 150 / 90; Pulse 93; Resp 18 S; Pulse Ox 100% on R/A; bb 01/25 00:59 BP 151 / 87; Pulse 78; Resp 12 S; Pulse Ox 98% on R/A; bb 01/24 17:41 Body Mass Index 41.73 (147.42 kg, 187.96 cm) ca1 MDM: 01/24 20:59 Patient medically screened. [facility] 21:56 Differential diagnosis: abnormal EKG, chest wall pain, congestive heart failure [facility] myocarditis, pancreatitis, stable angina. 22:39 Data reviewed: vital signs, nurses notes. Counseling: I had a detailed discussion with ma2 the patient and/or guardian regarding: the historical points, exam findings, and any diagnostic results supporting the discharge/admit diagnosis, the presence of at least one elevated blood pressure reading (>120/80) during this emergency department visit, the need for outpatient follow up, the need for further work-up and treatment in the hospital. 01/24 21:03 Order name: Basic Metabolic Panel [facility] 01/24 21:03 Order name: CBC with Diff [facility] 01/24 21:03 Order name: LFT's [facility] 01/24 21:03 Order name: Magnesium; Complete Time: 22:22 ri2 01/24 21:03 Order name: NT PRO-BNP; Complete Time: 22:22 [facility] 01/24 21:03 Order name: PT-INR; Complete Time: 22:22 [facility] 01/24 21:03 Order name: Troponin (emerg Dept Use Only); Complete Time: 22:22 [facility] 01/24 21:03 Order name: Basic Metabolic Panel; Complete Time: 22:22 [facility] 01/24 21:03 Order name: CBC with Automated Diff; Complete Time: 22:22 [facility] 01/24 21:03 Order name: Liver (Hepatic) Function; Complete Time: 22:22 [facility] 01/24 23:52 Order name: Urine Dipstick-Ancillary EDND 01/25 00:59 Order name: Troponin I [facility] 01/25 00:59 Order name: SARS-COV-2 RT PCR [facility] 01/24 21:03 Order name: XRAY Chest (1 view) [facility] 01/24 21:03 Order name: EKG; Complete Time: 21:04 [facility] 01/24 21:03 Order name: Cardiac monitoring; Complete Time: 21:44 [facility] 01/24 21:03 Order name: EKG - Nurse/Tech; Complete Time: 21:06 [facility] 01/24 21:03 Order name: IV Saline Lock; Complete Time: 21:43 [facility] 01/24 23:43 Order name: CONS Physician Consult [facility] 01/25 04:49 Order name: CBC with Automated Diff [facility] 01/25 04:56 Order name: Comprehensive Metabolic Panel [facility] 01/25 04:56 Order name: Phosphorus EDND 01/25 04:56 Order name: Troponin I [facility] 01/25 04:56 Order name: Lipid Profile [facility] 01/25 04:56 Order name: T4 Free EDND 01/25 04:56 Order name: Magnesium [facility] 01/25 04:56 Order name: Thyroid Stimulating Hormone [facility] 01/25 05:07 Order name: Hemoglobin A1c [facility] 01/24 21:03 Order name: Labs collected and sent; Complete Time: 21:44 ri2 01/24 21:03 Order name: O2 Per Protocol; Complete Time: 21:44 [facility] 01/24 21:03 Order name: O2 Sat Monitoring; Complete Time: 21:44 ma2 Administered Medications: 22:40 Drug: Aspirin Chewable Tablet 324 mg Route: PO; bb 23:00 Follow up: Response: No adverse reaction bb Disposition: 01/24/21 22:39 Hospitalization ordered by Hubert Hernandez for Observation. Preliminary diagnosis is Chest pain, unspecified. - Bed requested for Telemetry/MedSurg (observation). - Status is Observation. ap3 - Condition is Stable. - Problem is new. - Symptoms are unchanged. Signatures: Dispatcher [employer] EDND Graciela Chavez, RN RN dw Doreen Mcleod RN RN bb Vicki Berger, RN RN tl1 Luz Landaverde MD MD ma2 Ruthann Bearden RN RN ap3 Ivy Pressley RN RN ca1 Corrections: (The following items were deleted from the chart) 23:08 22:56 CORONAVIRUS+MR.LAB.BRZ ordered. [facility] EDND 23:48 22:39 Hospitalization Ordered by Hubert Hernandez DO for Observation. Preliminary tl1 diagnosis is Chest pain, unspecified. Bed requested for Telemetry/MedSurg (observation). Status is Observation. Condition is Stable. Problem is new. Symptoms are unchanged. ma2 01/25 08:27 05 23:48 01/24/2021 22:39 Hospitalization Ordered by Hubert Hernandez DO for dw Observation. Preliminary diagnosis is Chest pain, unspecified. Bed requested for [facility] ER HOLD. Status is Observation. Condition is Stable. Problem is new. Symptoms are unchanged. tl1 01/25 09:54 08:27 01/24/2021 22:39 Hospitalization Ordered by Hubert Hernandez DO for Observation. ap3 Preliminary diagnosis is Chest pain, unspecified. Bed requested for Telemetry/MedSurg (observation). Status is Observation. Condition is Stable. Problem is new. Symptoms are unchanged.
[2021-01-24] MEDS ORDERED: ASPIRIN 81 MG CHEWABLE TABLET ONE (23:03)
[2021-01-24 23:51] LABS: Urine Blood Negative (Negative); Urine Glucose Negative (Negative); Urine Protein Negative (Negative); Urine Specific Gravity 1.015 (1.005-1.030); Urine pH 5.5 (5.0-7.0)
--- NOTE | 2021-01-24 23:58 | P.HP ---
Certification for Inpatient Patient admitted to: Observation With expected LOS: <2 Midnights Patient will require the following post-hospital care: None Practitioner: I am a practitioner with admitting privileges, knowledge of patient current condition, hospital course, and medical plan of care. Services: Services provided to patient in accordance with Admission requirements found in Title 42 Section 412.3 of the Code of Federal Regulations Patient History Date of Service: 01/24/21 Primary Care Provider: none Reason for admission: chest pain History of Present Illness: Mr. Zamora is a 40 yo male with HTN and GERD here today for a few days of 5/10 sternal chest pain described as pressure and squeezing. He also reports tingling sensation in both arms. Right now he denies pain, only dull ache. Pain onset when sitting or lying down, duration varies. Says he felt minor chest tightness after a 2 mile walk. Pain improved with taking deep breaths or standing up. No relief with acid reducers. Reports lightheadedness and dry cough. Denies nausea, vomiting, SOB. Former smoker, quit 1.5 years ago. Family history of HTN. WBC 15. 5. Allergies No Known Allergies Allergy (Unverified 05/20/18 07:36) Home Medications: Smz./Tmp. [Bactrim Ds 800 MG/160 MG*] 160 - 800 mg PO BID 05/20/18 Levofloxacin [Levaquin] 500 mg PO DAILY #10 tablet 05/23/18 - Past Medical/Surgical History -: HTN -: GERD -: CHOLECYSTECTOMY - Family History Father -: Hypertension, Other (see notes) Notes: LEUKEMIA Mother -: Hypertension - Social History Smoking Status: Former smoker Alcohol use: Yes CD- Drugs: No Caffeine use: Yes Place of Residence: Home Review of Systems General: Unremarkable Eyes: Unremarkable ENT: Unremarkable Respiratory: Cough, As per HPI Cardiovascular: Chest Pain, Light Headedness, As per HPI Gastrointestinal: Unremarkable Genitourinary: Unremarkable Musculoskeletal: Unremarkable Integumentary: Unremarkable Neurological: Unremarkable Lymphatics: Unremarkable Physical Examination - Physical Exam General: Alert, In no apparent distress, Oriented x3, Cooperative HEENT: Atraumatic, Normocephalic, PERRLA, Mucous membr. moist/pink, EOMI, Sclerae nonicteric Neck: Supple, 2+ carotid pulse no bruit, JVD not distended, No Thyromegaly, No LAD Respiratory: Clear to auscultation bilaterally, Normal air movement Cardiovascular: No edema, Normal pulses, Regular rate/rhythm, Normal S1 S2, No gallops, No rubs, No murmurs Capillary refill: <2 Seconds Gastrointestinal: Normal bowel sounds, Soft and benign, Non-distended, No ascites, No tenderness, No masses, No rebound, No guarding Musculoskeletal: No clubbing, No swelling, No contractures, No erythema, No tenderness, No warmth Integumentary: No rashes, No breakdown, No significant lesion, No tenderness/swelling, No erythema, No warmth, No cyanosis Neurological: Normal gait, Normal speech, Normal strength at 5/5 x4 extr, Normal tone, Sensation intact, Cranial nerves 3-12 intact, Normal affect Lymphatics: No axilla or inguinal lymphadenopathy - Studies Laboratory Data (last 24 hrs) 01/24/21 21:10: PT 13.3 H, INR 1.15 01/24/21 21:10: WBC 15.50 H, Hgb 14.7, Hct 42.8, Plt Count 390 01/24/21 21:10: Sodium 141, Potassium 3.5, BUN 12, Creatinine 0.90, Glucose 95, Magnesium 2.4, Total Bilirubin 0.5, AST 24, ALT 54, Alkaline Phosphatase 112 Assessment and Plan - Plan cardiology consulted trend troponins and EKG lipid panel, tsh/t4, a1c pending daily ASA, BB, statin morphine and nitro PRN lovenox or DVT ppx dietitian consulted UA pending Discharge Plan: Home Plan to discharge in: 24 Hours - Advance Directives Does patient have a Living Will: No Does patient have a Durable POA for Healthcare: No - Code Status/Comfort Care Code Status Assessed: Yes (full code) Critical Care: No Time Spent Managing Pts Care (In Minutes): 70
[2021-01-25] MEDS ORDERED: ACETAMINOPHEN 500 MG TAB PO PRN
[2021-01-25] MEDS ORDERED: ONDANSETRON 4 MG/2 ML VIAL IV PRN
[2021-01-25] MEDS ORDERED: NITROGLYCERIN 0.4 MG/TAB SL PRN
[2021-01-25] MEDS ORDERED: HYDRALAZINE HCL 20 MG/ML VIAL IV PRN
[2021-01-25] MEDS ORDERED: MORPHINE 2 MG/ML SYR IV PRN
[2021-01-25 00:42] VITALS: BMI 42.3
[2021-01-25 04:08] VITALS: TEMP 97.6
[2021-01-25 04:47] LABS: Absolute Lymphocytes (CBC) 3.4 K/uL (0.7-4.9); Basophils % 1.1 % (0-1.3); Lymphocytes % 28.2 % (15.3-44.8); MPV 8.4 fL (7.6-11.3); RBC Red Blood Cell Count 5.03 M/uL (4.33-5.43)
[2021-01-25 04:52] LABS: ALT/SGPT 46 U/L (12-78); AST/SGOT 20 U/L (15-37); Albumin 3.4 g/dL (3.4-5.0); Alkaline Phosphatase 95 U/L (45-117); BUN Blood Urea Nitrogen 10 mg/dL (7-18); Bicarbonate 28 mmol/L (21-32); Bilirubin Total 0.7 mg/dL (0.2-1.0); Glucose Level 96 mg/dL (74-106); HDL Cholesterol 34 mg/dL (40-60); LDL Cholesterol, Calculated 86 (<130); Magnesium 2.4 mg/dL (1.8-2.4); Phosphorus 3.2 mg/dL (2.5-4.9); Potassium 3.2 mmol/L (3.5-5.1); Protein, Total 6.8 g/dL (6.4-8.2); Sodium Level 142 mmol/L (136-145); Troponin I < 0.02 ng/mL (0.0-0.045)
[2021-01-25] MEDS ORDERED: METOPROLOL TAR 25 MG TAB PO SCH (06:00)
[2021-01-25 06:59] VITALS: BP 129/71
[2021-01-25] MEDS ORDERED: METOPROLOL TAR 25 MG TAB ONE (07:06)
[2021-01-25] MEDS ORDERED: POTASSIUM CL SA 10 MEQ TAB PO ONE ×2 (07:16→08:34)
--- NOTE | 2021-01-25 07:18 | EKG ---
Test Date: 2021-01-24 Test Time: 17:45:26 Controller Instructor: MARISSA MEASUREMENT RESULTS: Intervals: Rate: 92 LA: 130 QRSD: 94 QT: 374 QTc: 462 Diller: P: 64 LA: 130 QRS: 18 T: 7 INTERPRETIVE STATEMENTS: Normal sinus rhythm Possible Left atrial enlargement RSR' or QR pattern in V1 suggests right ventricular conduction delay Borderline ECG Compared to ECG 05/20/2018 16:22:03 RSR' in V1 or V2 now present Sinus tachycardia no longer present Electronically Signed On 01-25-21 07:17:34 CDT by Lewis Hodge
[2021-01-25] MEDS ORDERED: ASPIRIN EC 81 MG TAB PO ONE (08:33)
[2021-01-25] MEDS ORDERED: ENOXAPARIN 40 MG/0.4 ML SQ ONE (08:34)
--- NOTE | 2021-01-25 08:51 | RAD REPORT ---
EXAM DESCRIPTION: RAD - Chest Single View - 01/24/2021 9:40 pm CLINICAL HISTORY: CHEST PAIN Chest pain. COMPARISON: Chest Single View dated 05/21/2018; Chest Single View dated 11/19/2017; Chest Single View dated 03/17/2017; CHEST SINGLE VIEW dated 10/28/2015 FINDINGS: Portable technique limits examination quality. The lungs are grossly clear. The heart is normal in size. No displaced fractures. IMPRESSION: No acute intrathoracic process suspected.
[2021-01-25] MEDS ORDERED: ASPIRIN EC 81 MG TAB PO SCH (09:00)
[2021-01-25] MEDS ORDERED: ENOXAPARIN 40 MG/0.4 ML SQ SCH (09:00)
[2021-01-25 09:23] VITALS: O2SAT 99
--- NOTE | 2021-01-25 14:58 | P.DS ---
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 Zamora is a 40 yo male with HTN and GERD here today for a few days of 5/10 sternal chest pain described as pressure and squeezing. He also reports tingling sensation in both arms. Right now he denies pain, only dull ache. Pain onset when sitting or lying down, duration varies. Says he felt minor chest tightness after a 2 mile walk. Pain improved with taking deep breaths or standing up. No relief with acid reducers. Reports lightheadedness and dry cough. Denies nausea, vomiting, SOB. Former smoker, quit 1.5 years ago. Family history of HTN. WBC 15.5. Hospital Course: Patient has done well during hospital stay. Spoke to Cardiology and they want a follow-up as an outpatient. Further testing can be done at that time. Cardiology felt like most of his symptoms are related to gastroesophageal reflux disease. Discharge patient on a PPI daily. Vital Signs/Physical Exam: Temp Pulse Resp BP Pulse Ox 97.6 F 84 14 129/71 100 01/25/21 03:59 01/25/21 06:59 01/25/21 06:59 01/25/21 06:59 01/25/21 06:59 General: Alert, In no apparent distress, Oriented x3 Laboratory Data at Discharge: WBC 12.10 K/uL (4.3-10.9) H D 01/25/21 04:00 Hgb 13.7 g/dL (13.6-17.9) 01/25/21 04:00 Hct 41.0 % (39.6-49.0) 01/25/21 04:00 Plt Count 352 K/uL (152-406) 01/25/21 04:00 PT 13.3 SECONDS (9.5-12.5) H 01/24/21 21:10 INR 1.15 01/24/21 21:10 Sodium 142 mmol/L (136-145) 01/25/21 04:00 Potassium Cancelled 01/25/21 13:00 BUN 10 mg/dL (7-18) 01/25/21 04:00 Creatinine 0.77 mg/dL (0.55-1.3) 01/25/21 04:00 Glucose 96 mg/dL (74-106) 01/25/21 04:00 Phosphorus 3.2 mg/dL (2.5-4.9) 01/25/21 04:00 Magnesium 2.4 mg/dL (1.8-2.4) 01/25/21 04:00 Total Bilirubin 0.7 mg/dL (0.2-1.0) 01/25/21 04:00 AST 20 U/L (15-37) 01/25/21 04:00 ALT 46 U/L (12-78) 01/25/21 04:00 Alkaline Phosphatase 95 U/L (45-117) 01/25/21 04:00 Troponin I < 0.02 ng/mL (0.0-0.045) 01/25/21 04:00 Triglycerides 71 mg/dL (<150) 01/25/21 04:00 Cholesterol 134 mg/dL (<200) 01/25/21 04:00 HDL Cholesterol 34 mg/dL (40-60) L 01/25/21 04:00 Cholesterol/HDL Ratio 3.94 01/25/21 04:00 Home Medications: Aspirin [Aspirin EC 81 MG] 81 mg PO DAILY #30 tablet. 01/25/21 Metoprolol Tartrate [Lopressor] 25 mg PO BID #30 tablet 01/25/21 Pantoprazole [Protonix Tab] 40 mg PO DAILY #30 tab 01/25/21 New Medications: Aspirin [Aspirin EC 81 MG] 81 mg PO DAILY #30 tablet. Metoprolol Tartrate [Lopressor] 25 mg PO BID #30 tablet Pantoprazole [Protonix Tab] 40 mg PO DAILY #30 tab Physician Discharge Instructions: OK TO DC IV AND DC HOME FOLLOW-UP WITH PRIMARY CARE PROVIDER IN 1-2 WEEKS FOLLOW-UP WITH CARDIOLOGY IN 1-2 WEEKS RETURN TO THE ER IF symptoms worsen CALL or TEXT DR. IBANEZ AT [phone] IF ANY QUESTIONS REGARDING HOSPITAL STAY. PLEASE CALL THE FLOOR AT [phone] IF ANY MEDICATION OR NURSING QUESTIONS. Diet: AHA Activity: Fall precautions Followup: NONE,NONE [Primary Care Provider] - Time spent managing pt's care (in minutes): 35
[2021-01-25] MEDS ORDERED: ATORVASTATIN 20 MG TAB PO SCH (21:00)
--- NOTE | 2021-01-26 07:51 | EKG ---
Test Date: 2021-01-25 Test Time: 09:30:52 Perfume Compounder: SARA MEASUREMENT RESULTS: Intervals: Rate: 72 ND: 134 QRSD: 102 QT: 426 QTc: 466 Warner: P: 11 ND: 134 QRS: 19 T: -1 INTERPRETIVE STATEMENTS: Normal sinus rhythm Normal ECG Compared to ECG 01/24/2021 17:45:26 No significant changes Electronically Signed On 01-26-21 07:48:27 CDT by Lewis Hodge
--- NOTE | 2021-01-30 08:58 | CON ---
Date of Consultation: 01/25/2021 Reason For Consultation: Chest pain. History Of Present Illness: Mr. Zamora is a 40-year-old white man, who has really no previous past med ical history, except obesity. He weighs 330 pounds. He came in with mid-epigastric pain . No nausea, vomiting, diaphoresis . Occasionally, he has some shoulder pain, but he unrel ated to that. Denies PND, orthopnea, pedal edema, palpitation, or syncope. He . His EKG was normal. Chest x-ray was normal. Troponin was normal. Past Medical History: Otherwise as stated above. Allergies: NONE. Review of Systems: Negative. Social History: Negative. Family History: Negative. Medications: None. Physical Examination: Vital Signs: He weighs 330 pounds. HEENT: Negative. Neck: Supple with no bruit. Chest: Clear. Cardiac: Revealed a regular rhythm and rate. No murmurs, gallops, or rubs. Abdomen: Obese, but benign. Extremities: Revealed no clubbing, cyanosis, or edema. Diagnostic Data: As stated earlier cholesterol medicine, blood pressure medicine __ NB/MODL Voice ID: [id number] Report ID: [id number]
== END 2021-01-25 09:32 | disposition home or self-care (01) ==
LOC: ER 17:16 → ERHOLD 23:48
PROVIDERS: ADMIT Hospitalist; ATTEND Hospitalist
DX: R07.9 Chest pain, unspecified (principal); K21.9 Gastro-esophageal reflux disease without esophagitis; I10 Essential (primary) hypertension; R20.2 Paresthesia of skin; R42 Dizziness and giddiness; R05 Cough; Z20.822 Contact with and (suspected) exposure to COVID-19; Z87.891 Personal history of nicotine dependence; Z90.49 Acquired absence of other specified parts of digestive tract; Z82.49 Family history of ischemic heart disease and other diseases of the circulatory system
CPT/HCPCS: 93005 ×2; 85025 ×2; 80048; 36415; 83735 ×2; 84100; 85610; 80061; 80076; 84443; 81003; 83036; 84484 ×3; 84439; 80053; 83880; 71045; 94760; 99285; U0003; J1650; G0378 ×2

== ENCOUNTER 2021-02-20 07:15 | Observation (INO) | payer OTHER ==
[2021-02-20 08:06] LABS: Absolute Lymphocytes (CBC) 3.1 K/uL (0.7-4.9); Basophils % 1.4 % (0-1.3); Hematocrit 43.1 % (39.6-49.0); Lymphocytes % 25.4 % (15.3-44.8); MPV 8.4 fL (7.6-11.3); RBC Red Blood Cell Count 5.29 M/uL (4.33-5.43)
[2021-02-20 08:07] LABS: Protime INR 1.14
[2021-02-20 08:12] LABS: ALT/SGPT 46 U/L (12-78); AST/SGOT 17 U/L (15-37); Albumin 3.5 g/dL (3.4-5.0); Alkaline Phosphatase 103 U/L (45-117); BUN Blood Urea Nitrogen 11 mg/dL (7-18); Bicarbonate 26 mmol/L (21-32); Bilirubin Direct 0.2 mg/dL (0-0.2); Bilirubin Total 0.6 mg/dL (0.2-1.0); Glucose Level 98 mg/dL (74-106); NT PRO-BNP 80 pg/mL (<125); Potassium 3.5 mmol/L (3.5-5.1); Protein, Total 7.5 g/dL (6.4-8.2); Sodium Level 140 mmol/L (136-145); Troponin (Emerg Dept Use Only) < 0.02 ng/mL (0.0-0.045)
--- NOTE | 2021-02-20 08:13 | RAD REPORT ---
EXAM DESCRIPTION: [place] Single View02/20/2021 7:59 am CLINICAL HISTORY: Chest pain COMPARISON: January 25, 2021 FINDINGS: The lungs appear clear of acute infiltrate. The heart is normal size IMPRESSION: No acute abnormalities displayed
[2021-02-20] MEDS ORDERED: FAMOTIDINE 20 MG/2 ML VIAL IV ONE (08:43)
[2021-02-20] MEDS ORDERED: ENOXAPARIN 100 MG/ML SYR SQ ONE (08:43)
[2021-02-20] MEDS ORDERED: METOPROLOL TAR 50 MG TAB ONE (08:43)
[2021-02-20] MEDS ORDERED: ASPIRIN EC 81 MG TAB PO ONE (08:43)
[2021-02-20] MEDS ORDERED: ACETAMINOPHEN 500 MG TAB PO PRN (09:05)
[2021-02-20] MEDS ORDERED: MORPHINE 4 MG/ML SYR IV PRN (09:05)
[2021-02-20] MEDS ORDERED: ALPRAZOLAM 0.25 MG TABLET PO PRN (09:05)
--- NOTE | 2021-02-20 09:15 | EDPHYS ---
Physician Documentation [facility] Name: Patricio Zamora Age: 40 yrs Sex: Male : 1980 Arrival Date: 02/20/2021 Time: 07:15 Bed DX1 Private MD: ED Physician Rajan Melvin HPI: 02/20 08:39 This 40 yrs old Male presents to ER via Ambulatory with complaints of Chest jeremy Pain, Numbness Of Arm. 08:39 The patient or guardian reports chest pain that is located primarily in the substernal jeremy area, anterior chest wall. Onset: 3 day(s) ago. The pain radiates to both shoulders, neck. Associated signs and symptoms: The patient has no apparent associated signs or symptoms. The chest pain is described as burning, a pressure. Duration: The patient or guardian reports multiple episodes, with no pattern. Modifying factors: The symptoms are alleviated by. Severity of pain: At its worst the pain was moderate in the emergency department the pain has improved moderately. The patient has not experienced similar symptoms in the past. Historical: - Allergies: 07:33 No Known Allergies; aa5 - PMHx: 07:33 None; aa5 - PSHx: 07:33 Cholecystectomy; aa5 - Immunization history:: Adult Immunizations unknown. - Social history:: Smoking status: Patient denies any tobacco usage or history of. - Family history:: not pertinent. ROS: 08:39 Constitutional: Negative for fever, chills, and weight loss, Eyes: Negative for injury, jeremy pain, redness, and discharge, ENT: Negative for injury, pain, and discharge, Neck: Negative for injury, pain, and swelling, Respiratory: Negative for shortness of breath, cough, wheezing, and pleuritic chest pain, Abdomen/GI: Negative for abdominal pain, nausea, vomiting, diarrhea, and constipation, Back: Negative for injury and pain, : Negative for injury, bleeding, discharge, and swelling, MS/Extremity: Negative for injury and deformity, Skin: Negative for injury, rash, and discoloration, Neuro: Negative for headache, weakness, numbness, tingling, and seizure, Psych: Negative for depression, anxiety, suicide ideation, homicidal ideation, and hallucinations, Allergy/Immunology: Negative for hives, rash, and allergies, Endocrine: Negative for neck swelling, polydipsia, polyuria, polyphagia, and marked weight changes, Hematologic/Lymphatic: Negative for swollen nodes, abnormal bleeding, and unusual bruising. 08:39 Cardiovascular: Positive for chest pain, of the right supraclavicular area, left supraclavicular area, diaphragm, right breast and left breast. Exam: 08:39 Constitutional: This is a well developed, well nourished patient who is awake, alert, jeremy and in no acute distress. Head/Face: Normocephalic, atraumatic. Eyes: Pupils equal round and reactive to light, extra-ocular motions intact. Lids and lashes normal. Conjunctiva and sclera are non-icteric and not injected. Cornea within normal limits. Periorbital areas with no swelling, redness, or edema. ENT: Nares patent. No nasal discharge, no septal abnormalities noted. Tympanic membranes are normal and external auditory canals are clear. Oropharynx with no redness, swelling, or masses, exudates, or evidence of obstruction, uvula midline. Mucous membranes moist. Neck: Trachea midline, no thyromegaly or masses palpated, and no cervical lymphadenopathy. Supple, full range of motion without nuchal rigidity, or vertebral point tenderness. No Meningismus. Chest/axilla: Normal chest wall appearance and motion. Nontender with no deformity. No lesions are appreciated. Cardiovascular: Regular rate and rhythm with a normal S1 and S2. No gallops, murmurs, or rubs. Normal PMI, no JVD. No pulse deficits. Respiratory: Lungs have equal breath sounds bilaterally, clear to auscultation and percussion. No rales, rhonchi or wheezes noted. No increased work of breathing, no retractions or nasal flaring. Abdomen/GI: Soft, non-tender, with normal bowel sounds. No distension or tympany. No guarding or rebound. No evidence of tenderness throughout. Back: No spinal tenderness. No costovertebral tenderness. Full range of motion. Male : Normal genitalia with no discharge or lesions. Skin: Warm, dry with normal turgor. Normal color with no rashes, no lesions, and no evidence of cellulitis. MS/ Extremity: Pulses equal, no cyanosis. Neurovascular intact. Full, normal range of motion. Neuro: Awake and alert, GCS 15, oriented to person, place, time, and situation. Cranial nerves II-XII grossly intact. Motor strength 5/5 in all extremities. Sensory grossly intact. Cerebellar exam normal. Normal gait. 08:39 Musculoskeletal/extremity: DVT Exam: No signs of deep vein thrombosis. no pain, no swelling, no tenderness, negative Homans' sign noted on exam, no appreciated bluish discoloration, no erythema, no increased warmth. 08:48 ECG was reviewed by the Attending Physician. [facility] Vital Signs: 07:17 BP 134 / 92; Pulse 85; Resp 20 S; Temp 98.5(O); Pulse Ox 96% on R/A; Weight 145.15 kg aa5 (R); Height 6 ft. 2 in. (187.96 cm) (R); Pain 3/10; 07:43 BP 146 / 98; Pulse 78; Resp 20; Temp 98.6; Pulse Ox 100% on R/A; kj1 07:17 Body Mass Index 41.09 (145.15 kg, 187.96 cm) aa5 MDM: 08:01 Patient medically screened. jeremy 08:42 Differential diagnosis: abnormal EKG, anxiety, coronary artery disease chest wall pain, jeremy costochondritis, esophagitis, pancreatitis, pneumonia, pulmonary embolus, stable angina, unstable angina. HEART Score: ECG: Normal (0), Age: < or = 45 years (0), Risk Factors: > or = 3 Risk factors for atherosclerotic disease (2), [Hypertension] [+ Family HX] [Obesity] Troponin: > or = 3 x Normal Limit (2). The patient was given aspirin in the Emergency Department. The patient's deep vein thrombosis risk score was calculated as follows: Total Score: 0. This patient was found to be at low risk for a deep vein thrombosis by using the Well's assessment criteria. The patient's pulmonary embolism risk score was calculated as follows: Total Score: 0-2 points. This patient was found to be at low risk for a pulmonary embolism by using the Well's assessment criteria. CELESTINE Risk Score: 1 - Three or more CAD risk factors, TOTAL SCORE = 1. Data reviewed: vital signs, nurses notes, lab test result(s), EKG, radiologic studies, CT scan, plain films. 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 Test interpretation: by ED physician or midlevel provider: ECG, plain radiologic studies. Counseling: I had a detailed discussion with the patient and/or guardian regarding: the historical points, exam findings, and any diagnostic results supporting the discharge/admit diagnosis, lab results, radiology results, the need for further work-up and treatment in the hospital. 02/20 07:23 Order name: Basic Metabolic Panel; Complete Time: 08:39 tw4 02/20 07:23 Order name: CBC with Diff; Complete Time: 08:39 tw4 02/20 07:23 Order name: LFT's; Complete Time: 08:39 tw4 02/20 07:23 Order name: Magnesium; Complete Time: 08:39 tw4 02/20 07:23 Order name: NT PRO-BNP; Complete Time: 08:39 tw4 02/20 07:23 Order name: PT-INR; Complete Time: 08:39 tw4 02/20 07:23 Order name: Troponin (emerg Dept Use Only); Complete Time: 08:39 tw4 02/20 09:08 Order name: Lipid Profile [facility] 02/20 09:08 Order name: Lipid Profile; Complete Time: 16:25 EDNJ 02/20 09:08 Order name: Troponin I [facility] 02/20 09:08 Order name: Troponin I [facility] 02/20 09:08 Order name: Troponin I [facility] 02/20 09:34 Order name: SARS-COV-2 RT PCR; Complete Time: 16:25 EDMS 02/20 07:23 Order name: XRAY Chest (1 view); Complete Time: 08:39 tw4 02/20 07:23 Order name: EKG; Complete Time: 07:24 tw4 02/20 07:23 Order name: Cardiac monitoring; Complete Time: 07:52 tw4 02/20 07:23 Order name: EKG - Nurse/Tech; Complete Time: 07:53 tw4 02/20 07:23 Order name: IV Saline Lock; Complete Time: 07:53 tw4 02/20 07:23 Order name: Labs collected and sent; Complete Time: 07:53 tw4 02/20 07:23 Order name: O2 Per Protocol; Complete Time: 08:14 tw4 02/20 09:08 Order name: CONS Physician Consult; Complete Time: 09:14 EDMS 02/20 09:08 Order name: Heart Healthy; Complete Time: 09:14 EDMS 02/20 09:08 Order name: Echo with Doppler EDMS 02/20 14:47 Order name: NM; Complete Time: 16:25 EDNJ 02/20 07:23 Order name: O2 Sat Monitoring; Complete Time: 08:14 tw4 EC:48 Rate is 75 beats/min. Rhythm is regular. QRS [place] is Normal. AR interval is normal. QRS jeremy interval is normal. QT interval is normal. No Q waves. T waves are Normal. No ST changes noted. Clinical impression: NSR w/ Non-specific ST/T Changes and No evidence of ischemia. Interpreted by me. Reviewed by me. Administered Medications: 08:29 Drug: Pepcid (famotidine) 20 mg Route: IVP; Site: right antecubital; kg 11:24 Follow up: Response: No adverse reaction kg 08:30 Drug: Lopressor (metoprolol TARTRATE) 50 mg Route: PO; kg 11:24 Follow up: Response: No adverse reaction; Marked relief of symptoms; Blood pressure is kg lowered 08:30 Drug: Lovenox (enoxaparin) 100 mg Route: Sub-Q; Site: abdomen; kg 11:25 Follow up: Response: No adverse reaction kg 08:30 Drug: Aspirin Chewable Tablet 324 mg Route: PO; kg 11:25 Follow up: Response: No adverse reaction kg 09:22 Drug: GI Cocktail without - (Maalox Suspension 30 ml, Lidocaine Liquid 2 % 15 kg ml) Route: PO; Disposition: 02/20/21 08:46 Hospitalization ordered by Luz Apple for Observation. Preliminary diagnosis are Chest pain, unspecified, Essential (primary) hypertension, Obesity, unspecified. - Bed requested for [facility] ER HOLD. - Status is Observation. aa5 - Condition is Stable. - Problem is new. - Symptoms have improved. Signatures: Dispatcher [employer] EDNJ Rajan Melvin MD MD cha Martinez, Eric em1 Samantha Watson, RN RN aa5 Nilson Castillo MD MD tw4 Maria Del Rosario Curran kg Corrections: (The following items were deleted from the chart) 08:50 08:01 CORONAVIRUS+MR.LAB.BRZ ordered. [facility] 14:37 08:46 Hospitalization Ordered by Luz Apple MD for Observation. Preliminary em1 diagnosis is Chest pain, unspecified; Essential (primary) hypertension; Obesity, unspecified. Bed requested for Telemetry/MedSurg (observation). Status is Observation. Condition is Stable. Problem is new. Symptoms have improved. jeremy 17:35 14:37 02/20/2021 08:46 Hospitalization Ordered by Luz Apple MD for Observation. aa5 Preliminary diagnosis is Chest pain, unspecified; Essential (primary) hypertension; Obesity, unspecified. Bed requested for [facility] ER HOLD. Status is Observation. Condition is Stable. Problem is new. Symptoms have improved. em1
--- NOTE | 2021-02-20 09:15 | ER ---
Nurse's Notes [facility] Name: Patricio Zamroa Age: 40 yrs Sex: Male : 1980 Arrival Date: 02/20/2021 Time: 07:15 Bed DX1 Private MD: Diagnosis: Chest pain, unspecified;Essential (primary) hypertension;Obesity, unspecified Presentation: 02/20 07:17 Chief complaint: Chief complaint: Patient states: epigastric pain radiating to aa5 mid-sternal area with quinton intermittent arm tingling that began "a couple weeks ago". Pt states "I was seen here a couple weeks ago and they told me to see a assurance associate but I haven't had the time, they also gave me something for my blood pressure and a stomach medicine but the pain has continued". Pt states "the pain is worse when I lie down". 07:17 Coronavirus screen: At this time, the client does not indicate any symptoms associated aa5 with coronavirus-19. Ebola Screen: Patient negative for fever greater than or equal to 101.5 degrees Fahrenheit, and additional compatible Ebola Virus Disease symptoms. Initial Sepsis Screen: Does the patient meet any 2 criteria? No. Patient's initial sepsis screen is negative. Does the patient have a suspected source of infection? No. Patient's initial sepsis screen is negative. Risk Assessment: Do you want to hurt yourself or someone else? Patient reports no desire to harm self or others. Onset of symptoms was January 2021. 07:17 Method Of Arrival: Ambulatory aa5 07:17 Acuity: DOMINGO 3 aa5 Historical: - Allergies: 07:33 No Known Allergies; aa5 - PMHx: 07:33 None; aa5 - PSHx: 07:33 Cholecystectomy; aa5 - Immunization history:: Adult Immunizations unknown. - Social history:: Smoking status: Patient denies any tobacco usage or history of. - Family history:: not pertinent. Screenin:50 Abuse screen: Denies threats or abuse. Denies injuries from another. Nutritional kg screening: No deficits noted. Tuberculosis screening: No symptoms or risk factors identified. Fall Risk None identified. No fall in past 12 months (0 pts). No secondary diagnosis (0 pts). IV access (20 points). Ambulatory Aid- None/Bed Rest/Nurse Assist (0 pts). Gait- Normal/Bed Rest/Wheelchair (0 pts) Mental Status- Oriented to own ability (0 pts). Total Schneider Fall Scale indicates No Risk (0-24 pts). Assessment: 07:52 General: Appears in no apparent distress. Behavior is calm, cooperative, appropriate kg for age, quiet. Pain: Complains of pain in diaphragm and xyphoid area Pain radiates to left arm Pain currently is 3 out of 10 on a pain scale. at worst was 7 out of 10 on a pain scale. level that patient reports is acceptable is 2 out of 10 on a pain scale. Quality of pain is described as dull, sharp, Pain began suddenly, 2-3 days ago. Is episodic. Neuro: Level of Consciousness is awake, alert, obeys commands, Oriented to person, place, time, situation, Reports numbness in left arm since several days. 07:54 Cardiovascular: Reports chest pain, Heart tones S1 S2 Capillary refill < 3 seconds kg Pulses are all present. Respiratory: No deficits noted. Airway is patent Respiratory effort is even, unlabored, relaxed, Respiratory pattern is regular, GI: Reports nausea. : No deficits noted. EENT: No deficits noted. Derm: No deficits noted. Vital Signs: 07:17 BP 134 / 92; Pulse 85; Resp 20 S; Temp 98.5(O); Pulse Ox 96% on R/A; Weight 145.15 kg aa5 (R); Height 6 ft. 2 in. (187.96 cm) (R); Pain 3/10; 07:43 BP 146 / 98; Pulse 78; Resp 20; Temp 98.6; Pulse Ox 100% on R/A; kj1 07:17 Body Mass Index 41.09 (145.15 kg, 187.96 cm) aa5 ED Course: 07:15 Patient arrived in ED. ds1 07:17 Arm band placed on Patient placed in an exam room, on a stretcher. aa5 07:29 Maria Del Rosario Curran is Primary Nurse. kg 07:32 Triage completed. aa5 07:43 EKG done, by ED staff, reviewed by Nilson Castillo MD. Initial lab(s) drawn, by , debbi sent to lab. Inserted saline lock: 20 gauge in right antecubital area, using aseptic technique. Blood collected. 07:58 Rajan Melvin MD is Attending Physician. jeremy 07:59 XRAY Chest (1 view) In Process Unspecified. EDMS 08:46 Luz Apple MD is Hospitalizing Provider. jeremy 11:23 Patient has correct armband on for positive identification. Bed in low position. Call kg light in reach. Side rails up X2. quality assurance monitor on. Pulse ox on. NIBP on. 11:23 No provider procedures requiring assistance completed. Patient maintains SpO2 kg saturation greater than 95% on room air. Administered Medications: 08:29 Drug: Pepcid (famotidine) 20 mg Route: IVP; Site: right antecubital; kg 11:24 Follow up: Response: No adverse reaction kg 08:30 Drug: Lopressor (metoprolol TARTRATE) 50 mg Route: PO; kg 11:24 Follow up: Response: No adverse reaction; Marked relief of symptoms; Blood pressure is kg lowered 08:30 Drug: Lovenox (enoxaparin) 100 mg Route: Sub-Q; Site: abdomen; kg 11:25 Follow up: Response: No adverse reaction kg 08:30 Drug: Aspirin Chewable Tablet 324 mg Route: PO; kg 11:25 Follow up: Response: No adverse reaction kg 09:22 Drug: GI Cocktail without - (Maalox Suspension 30 ml, Lidocaine Liquid 2 % 15 kg ml) Route: PO; Outcome: 08:46 Decision to Hospitalize by Provider. jeremy 17:35 Patient left the ED. aa5 Signatures: Dispatcher [employer] EDOR Rajan Melvin MD MD cha Sanford, Demi ds1 Samantha Watson RN RN aa5 Jana Conway kj1 Maria Del Rosario Curran kg Corrections: (The following items were deleted from the chart) 07:32 07:17 Chief complaint: aa5 aa5
[2021-02-20] MEDS ORDERED: REGADENOSON 0.4 MG/5 ML SYR IV ONE (09:18)
[2021-02-20] MEDS ORDERED: MAGNES/ALUMIN/SIMET 30ML UCUP ONE (09:38)
[2021-02-20] MEDS ORDERED: LIDOCAINE VISCOUS 2% SOLN 15 ML UDC ONE (09:38)
--- NOTE | 2021-02-20 14:46 | RAD REPORT ---
EXAM DESCRIPTION: NM - Rest Stress Cardiac Imaging - 02/20/2021 2:16 pm CLINICAL HISTORY: Chest pain COMPARISON: None. TECHNIQUE: The patient was administered 10.8 mCi of Tc 99m Sestamibi prior to resting SPECT imaging of the heart. The patient was then administered 32.1 mCi of Tc 99m Sestamibi following exercise or ph armacologic stress. Multiplanar SPECT images were reviewed. FINDINGS: The end diastolic volume is 159 ml, the end systolic volume is 71 ml, and the ejection fra ction is 55 %. No stress-induced ischemic changes identifiable. Small area of mildly diminished activity is seen in the anteroseptal wall from mid wall to the apex. A larger area of more pronounced diminished activity seen in the inferoseptal wall from base to apex. Scarring is most likely. Diaphragm attenuation madyson fact may accentuate the inferior wall diminished activity. IMPRESSION: No stress-induced ischemic change identified. Small anteroseptal wall and large inferola teral wall fixed defects are probably scarring. Attenuation artifact may contribute to the inferior w all scarring. End-diastolic volume is enlarged at 159 milliliters. Patient has a normal EF of 55%.
[2021-02-20 15:04] VITALS: BP 140/80; TEMP 98
--- NOTE | 2021-02-20 15:04 | P.SSS ---
Patient History Date of Service: 02/26/21 Reason for admission: Chest pain rule out acute coronary syndrome History of Present Illness: Mr. Zamora is a 40 yo male with a history of HTN and GERD who was admitted to the hospital with chest discomfort. Patient was here a month ago with similar comp laints. He used to be a smoker. He has a history of hypertension. He described the pain as pressure and squeezing. It also caused numbness in both of the arms. He came to the emergency room once again for further evaluation. He was post to follow with Cardiology but unfortunately was not able 2. Patient is set up for cardiac stress test today. Troponins have been negative once again. Allergies No Known Allergies Allergy (Unverified 05/20/18 07:36) Home Medications: Aspirin [Aspirin EC 81 MG] 81 mg PO DAILY #30 tablet. 01/25/21 ALPRAZolam [Xanax*] 0.25 mg PO BID PRN #30 tab 02/20/21 Metoprolol Tartrate [Lopressor] 25 mg PO BID #60 tablet 02/20/21 Pantoprazole [Protonix Tab*] 40 mg PO DAILY #30 tab 02/20/21 - Past Medical/Surgical History Has patient received pneumonia vaccine in the past: No -: HTN -: GERD -: CHOLECYSTECTOMY - Family History Father -: Hypertension, Other (see notes) Notes: LEUKEMIA Mother -: Hypertension - Social History Alcohol use: Yes CD- Drugs: No Caffeine use: Yes Review of Systems 10-point ROS is otherwise unremarkable Physical Examination - Vital Signs Temperature: 98 F Blood Pressure: 140/80 Pulse: 80 Respirations: 18 Pulse Ox (%): 95 - Physical Exam General: Alert, In no apparent distress, Oriented x3 HEENT: Atraumatic, PERRLA, Mucous membr. moist/pink, EOMI, Sclerae nonicteric Neck: Supple, 2+ carotid pulse no bruit, No LAD, Without JVD or thyroid abnormality Respiratory: Clear to auscultation bilaterally, Normal air movement Cardiovascular: Regular rate/rhythm, Normal S1 S2, No murmurs Gastrointestinal: Normal bowel sounds, Soft and benign, Non-distended, No tenderness Musculoskeletal: No clubbing, No swelling, No tenderness Integumentary: No rashes Neurological: Normal gait, Normal speech, Normal strength at 5/5 x4 extr, Normal tone, Sensation intact, Cranial nerves 3-12 intact, Normal affect Lymphatics: No axilla or inguinal lymphadenopathy - Studies Laboratory Data (last 24 hrs) 02/20/21 07:43: Triglycerides 76, Cholesterol 150, HDL Cholesterol 32 L, Cholesterol/HDL Ratio 4.69 02/20/21 07:43: PT 13.1 H, INR 1.14 02/20/21 07:43: WBC 12.30 H, Hgb 14.5, Hct 43.1, Plt Count 373 02/20/21 07:43: Sodium 140, Potassium 3.5, BUN 11, Creatinine 0.95, Glucose 98, Magnesium 2.0, Total Bilirubin 0.6, AST 17, ALT 46, Alkaline Phosphatase 103 - Diagnosis (Problem(s)) (1) Chest pain, rule out acute myocardial infarction Status: Acute (2) Morbid obesity Status: Acute Treatment Summary: Patient was admitted to the hospital in troponins have been negative. The EKG is unremarkable. Patient had a stress test performed as he has had chest pain about a month ago with similar complaints. The stress test was unremarkable. He did have some scarring which could be related to an old infarct. However, there is no reversible ischemia. At this time, patient is stable for discharge with outpatient follow-up. - Disposition Condition: GOOD Diet: AHA Activity: Fall precautions Critical Care: No Time Spent Managing Pts Care (In Minutes): 45
[2021-02-20 16:47] VITALS: BMI 41.1
[2021-02-20 17:43] VITALS: O2SAT 100
[2021-02-20] MEDS ORDERED: METOPROLOL TAR 25 MG TAB PO SCH (18:00)
[2021-02-21] MEDS ORDERED: ENOXAPARIN 40 MG/0.4 ML SQ SCH (09:00)
[2021-02-21] MEDS ORDERED: ASPIRIN EC 81 MG TAB PO SCH (09:00)
--- NOTE | 2021-02-21 12:00 | EKG ---
Test Date: 2021-02-20 Test Time: 07:37:27 Computer Application Developer: KASANDRA MEASUREMENT RESULTS: Intervals: Rate: 75 VT: 132 QRSD: 96 QT: 412 QTc: 460 [place]: P: 18 VT: 132 QRS: -13 T: 14 INTERPRETIVE STATEMENTS: Normal sinus rhythm Minimal voltage criteria for LVH, may be normal variant Borderline ECG Compared to ECG 01/25/2021 09:30:52 Left ventricular hypertrophy now present Electronically Signed On 02-21-21 11:54:18 CDT by Lewis Hodge
--- NOTE | 2021-02-21 12:37 | ECHO ---
HEIGHT: 6 ft 2 in WEIGHT: 320 lb 0 oz DATE OF STUDY: 02/20/[address]: Luz Apple MD 2-DIMENSIONAL: YES M.MODE: YES DOPPLER: YES COLOR FLOW: YES TDS: YES PORTABLE: NO DEFINITY: NO BUBBLE STUDY: NO DIAGNOSIS: CHEST PAIN RULE OUT ACS CARDIAC HISTORY: CATHERIZATION: NO SURGERY: NO PROSTHETIC VALVE: NO PACEMAKER: NO MEASUREMENTS (cm) DIASTOLIC (NORMALS) SYSTOLIC (NORMALS) IVSd 0.8 (0.6-1.2) LA Diam (1.9-4.0) LVEF 64% LVIDd 3.9 (3.5-5.7) LVIDs 2.6 (2.0-3.5) %FS 35% LVPWd 1.0 (0.6-1.2) Ao Diam (2.0-3.7) 2 DIMENSIONAL ASSESSMENT: RIGHT ATRIUM: NORMAL LEFT ATRIUM: NORMAL RIGHT VENTRICLE: NORMAL LEFT VENTRICLE: NORMAL TRICUSPID VALVE: NORMAL MITRAL VALVE: NORMAL PULMONIC VALVE: NORMAL AORTIC VALVE: NORMAL PERICARDIAL EFFUSION: NONE AORTIC ROOT: NORMAL LEFT VENTRICULAR WALL MOTION: NORMAL DOPPLER/COLOR FLOW: NORMAL COMMENTS: NORMAL 2D ECHOCARDIOGRAM WITH DOPPLER. NO WALL MOTION ABNORMALITY. NO EFFUSION. TECHNOLOGIST: Sarah JEAN-BAPTISTE
--- NOTE | 2021-02-21 12:52 | TREADPHA ---
DX: CHEST PAIN Date of Study: 02/20/2021 Ht: 6' 2 " Wt: 320 lb 0 oz Consulting Physician: LAURA MEDICATIONS: HISTORY: HYPERTENSION PHYSICIAL EXAMINATION: RESTING B.P.: 154/92 RESTING H.R.: 70 RESTING EKG: SINUS RHYTHM, RIGHT BUNDLE BRANCH BLOCK PROTOCOL: LEXISCAN EXERCISE TIME: 3:30 B.P. AT PEAK STRESS: 143/89 IMPRESSION: LEXISCAN INJECTED. CARDIOLITE INJECTED PER PROTOCOL. SEE NUCLEAR MEDICINE REPORT. NO CHEST PAIN. COMPLAINTS OF SHORTNESS OF BREATH. NO VENTRICULAR TACHYCARDIA. NO VENTRICULAR TACHYCARDIA. NO ARRHYTHMIAS NOTED.
--- NOTE | 2021-02-25 09:45 | CON ---
Date of Consultation: 02/20/2021 This is the patient who was admitted and seen on 02/20/2021. He was admitted to Dr. Apple. Reason For Consultation: Chest pain. History Of Present Illness: Mr. Zamora is 40-year-old, has no significant past medical history except for obesity. This is the second admission with chest pain, numbness in the arm. The pain in the ant erior chest wall has been going on consistently for 3 days. No nausea, vomiting, diaphoresis, PND, o rthopnea, pedal edema, palpitation, or syncope. His symptoms are not exertional, but described as a pressure. So far, he has ruled out, his EKG is normal, chest x-ray is normal, troponin is normal, BN P is normal. Past Medical History: Negative. Allergies: NONE. Review of Systems: Negative. Social History: Negative. Family History: Noncontributory. Physical Examination: VITAL SIGNS: Stable. He was afebrile. HEENT: Negative. Neck: Supple without any bruit, lymphadenopathy, JVD, or thyromegaly. Chest: Clear to auscultation and percussion. Cardiac: Regular rhythm and rate. No murmurs, gallops, or rubs. Abdomen: Benign. Extremities: No clubbing, cyanosis, or edema. Diagnostic Data: Within normal limits. Impression And Plan: The patient with morbid obesity. Second admission for similar symptoms. He wa s supposed to have an outpatient workup, but that did not work out. Recommended a 2D echocardiogram and a stress test today before we make any further decision. TOBY/VICKY Voice ID: [id number] Report ID: [id number]
== END 2021-02-20 17:20 | disposition home or self-care (01) ==
LOC: ER 07:15 → ERHOLD 09:05
PROVIDERS: ADMIT Hospitalist; ATTEND Hospitalist
DX: R07.9 Chest pain, unspecified (principal); E66.01 Morbid (severe) obesity due to excess calories; I10 Essential (primary) hypertension; K21.9 Gastro-esophageal reflux disease without esophagitis; Z20.822 Contact with and (suspected) exposure to COVID-19; Z87.891 Personal history of nicotine dependence; Z68.41 Body mass index [BMI] 40.0-44.9, adult
CPT/HCPCS: 93005; 93017; 93306; 85025; 80048; 36415; 83735; 85610; 80061; 80076; 84484 ×2; 83880; 71045; 78452; U0003; J1650; J2785; A9500; 96372; 96374; 99285

== ENCOUNTER 2023-02-24 10:40 | Emergency (ER) | payer OTHER ==
--- OUTSIDE RECORDS SUMMARY | 2023-02-24 10:58 | XMS REPORT | Continuity of Care Document ---
:1980 Author Organization [facility] t Address [address] [place] [address] Care Team Providers Name Role Phone PAULY GUTIERREZ Attending Clinician Unavailable LAB90 Attending Clinician Unavailable Payers Payer Name Policy Type Policy Number Effective Date Expiration Date S bebe [facility] 2 [id number] 2022 00:00:00 Problems Condition Condition Condition Status Onset Resolution Last Treating Co mments Source Name Details Category Date Date Treatment Clinician Date Primary Primary Disease Active 2021-09 Cindy hypertensi hypertensi 0-27 Se ybold on on 00:00: - 00 Externa l Prediabete Prediabete Disease Active 2021-09 K elsey s s 0-27 Seybold 00:00: - 00 Externa l BMI BMI Disease Active 2021-09 Cindy 45.0-49.9, 45.0-49.9, 0-27 Se ybold adult adult 00:00: - 00 Externa l No known No known Disease Desmond vines active active Seybold problems problems - Externa l Allergies, Adverse Reactions, Alerts This patient has no known allergies or adverse reactions. 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 Clinician (SIG) Name [facility]-09 Yes [id number] .25mg Inject Seth sey (0.25 or 1-30 0.25 mg Seybold 0.5 00:00: into the - mg/dose) 2 00 skin once Exte rna mg/1.5 mL a week l SQ Solution Pen-Injecto r Metoprolol 2021-09 Yes [id number] 50mg Take 1 K elsey Succinate 1-30 tablet (50 Seyb old 50 MG oral 00:00: mg total) - TABLET SR 00 by mouth Grounds Foreman a 24 HR daily l Ondansetron 2021-09 Yes [id number] 4mg [id number] Take 1 Cindy (ZOFRAN) 4 1-30 [id number] tablet (4 Seybold MG oral 00:00: 3D mg total) - TABLET 00 by mouth Externa DISPERSIBLE every 8 l hours as needed for nausea Liraglutide 2021-09- No [id number] Inject 0.1 Cindy -Weight 1-11 11-30 mL (0.6 mg Seybo ld Management 00:00: 00:00 total) - (Saxenda) 00 :00 into the Gr[employer]man a 18 MG/3ML skin daily l subcutaneou Inject 0.6 s Solution mg subcu Pen-injecto daily for r 1 week then increase the dose to 1.2 mg daily for a week. Then, increase dose to 1.8 mg subcu daily for 1 week. Then, increase dose to max dose of 3 mg subcu daily. Metoprolol 2021-09 Yes [id number] 1{tbl} Take 1 Cindy Succinate 0-27 tablet by Seybo ld 50 MG oral 00:00: mouth - Capsule ER 00 daily Externa 24 Hour l Sprinkle OZDAWNAIC 2021-09 Yes [id number] .25mg Inject Ke lsey (0.25 or 0-27 0.25 mg Seybold 0.5 00:00: into the - mg/dose) 2 00 skin once Exte rna mg/1.5 mL a week l SQ Solution Pen-Injecto r Metoprolol 2021-09- No [id number] 1{tbl} Take 1 Cindy Succinate 08-21 tablet by Jnen pérez 50 MG oral 00:00: 00:00 mouth - Capsule ER 00 :00 daily Externa 24 Hour l Sprinkle Immunizations Ordered Immunization Filled Immunization Date Status Commen ts Source Name Name Anthrax Vaccine 2006-10-21 Completed Cindy Ruiz ybold 00:00:00 - External Vital Signs Vital Name Observation Time Observation Value Comments Source Systolic blood 2022-08-21 15:37:00 126 mm[Hg] Cindy Seybold - pressure External Diastolic blood 2022-08-21 15:37:00 88 mm[Hg] Sethse y Seybold - pressure External Heart rate 2022-08-21 15:37:00 96 /min Cindy Rodriguez eybold - External Body temperature 2022-08-21 15:37:00 36.56 Yoanna Renée ey Seybold - External Respiratory rate 2022-08-21 15:37:00 16 /min Renée ey Seybold - External Body height 2022-08-21 15:37:00 188 cm Cindy Rodriguez eybold - External Body weight 2022-08-21 15:37:00 169.645 kg Cindy Rodriguez eybold - External BMI 2022-08-21 15:37:00 48.02 kg/m2 Cindy Rodriguez eybold - External Systolic blood 2022-07-18 15:05:00 164 mm[Hg] Cindy Seybold - pressure External Diastolic blood 2022-07-18 15:05:00 102 mm[Hg] Desmond y Seybold - pressure External Heart rate 2022-07-18 15:05:00 95 /min Cindy Rodriguez eybold - External Body temperature 2022-07-18 15:05:00 36.56 Yoanna Renée ey Seybold - External Respiratory rate 2022-07-18 15:05:00 16 /min Renée pennington Seybold - External Body height 2022-07-18 15:05:00 188 cm Cindy Rodriguez eybold - External Body weight 2022-07-18 15:05:00 170.552 kg Cindy Rodriguez eybold - External BMI 2022-07-18 15:05:00 48.28 kg/m2 Cindy Rodriguez eybokacey - External Procedures This patient has no known procedures. Encounters Start End Encounter Admission Attending Care Care Encounter Source Date/Time Date/Time Type Type Clinicians Facility Department ID 2022-09-02 2022-09-02 Outpatient CINDY GUTIERREZ [id number] Cindy 00:00:00 00:00:00 PAULY Seybol d 2022-08-21 2022-08-21 Outpatient CINDY GUTIERREZ [id number] iCndy 09:30:00 09:30:00 PAULY Seybol d 2022-08-09 2022-08-09 Outpatient CINDY GUTIERREZ [id number] Cindy 10:00:00 10:00:00 PAULY Seybol d 2022-07-30 2022-07-30 Outpatient CINDY GUTIERREZ [id number] Cindy 00:00:00 00:00:00 PAULY Seybol d 2022-07-26 2022-07-26 Outpatient CINDY GUTIERREZ [id number] Cindy 00:00:00 00:00:00 PAULY Seybol d 2022-07-22 2022-07-22 Outpatient CINDY GUTIERREZ [id number] Cindy 00:00:00 00:00:00 PAULY Seybol d 2022-07-18 2022-07-18 Outpatient LAB90 CINDY WHITE [id number] Cindy 10:45:00 10:45:00 Seybol d 2022-07-18 2022-07-18 Outpatient CINDY GUTIERREZ [id number] Cindy 10:00:00 10:00:00 PAULY Seybol d 2022-07-18 2022-07-18 Outpatient CINDY GUTIERREZ [id number] Cindy 00:00:00 00:00:00 PAULY Seybol d Results This patient has no known results.
--- NOTE | 2023-02-24 11:42 | RAD REPORT ---
EXAM DESCRIPTION: USExtremity Venous Uni Ltd02/24/2023 11:24 am CLINICAL HISTORY: left leg swelling COMPARISON: None FINDINGS: Left common femoral, superficial femoral, greater saphenous, popliteal and posterior tibi al veins are compressible and demonstrate augmentation. Doppler demonstrates good flow. Grayscale, color and spectral analysis performed on all vessels IMPRESSION: No evidence of deep venous thrombosis involving the left lower extremity.
--- NOTE | 2023-02-24 12:01 | EDPHYS ---
Physician Documentation [facility] Name: Patricio Zamora Age: 42 yrs Sex: Male : 1980 Arrival Date: 02/24/2023 Time: 10:40 Bed 12 Private MD: Hubert Hernandez ED Physician Rajan Melvin HPI: 02/24 11:02 This 42 yrs old Male presents to ER via Ambulatory with complaints of Leg Swelling. snw 11:02 The patient presents with a rash, erythematous. The complaints affect the medial aspect snw of left calf. Context: The problem was sustained at home, resulted from an unknown cause, the patient can fully bear weight, the patient is able to ambulate, Problem is a result from a previous injury: previous site of cellulitis. Onset: The symptoms/episode began/occurred suddenly, 4 day(s) ago, and became persistent. Associated signs and symptoms: Pertinent positives: rash, itching. Severity of symptoms: At their worst the symptoms were mild. The patient has experienced a previous episode. It is unknown whether or not the patient has recently seen a physician. just took his Metoprolol. Historical: - Allergies: 10:50 No Known Allergies; hb - Home Meds: 10:50 metoprolol tartrate 25 mg Oral tablet every 12 hours [Active]; hb - PMHx: 10:50 hypertension; hb - PSHx: 10:50 Cholecystectomy; hb - Immunization history:: Adult Immunizations up to date. - Social history:: Smoking status: Patient/guardian denies using tobacco. ROS: 11:02 Constitutional: Negative for fever, chills, and weight loss, Eyes: Negative for injury, snw pain, redness, and discharge, ENT: Negative for injury, pain, and discharge, Neck: Negative for injury, pain, and swelling, Cardiovascular: Negative for chest pain, palpitations, and edema, Respiratory: Negative for shortness of breath, cough, wheezing, and pleuritic chest pain, Abdomen/GI: Negative for abdominal pain, nausea, vomiting, diarrhea, and constipation, Back: Negative for injury and pain, : Negative for injury, bleeding, discharge, and swelling, Skin: Negative for injury, rash, and discoloration, Neuro: Negative for headache, weakness, numbness, tingling, and seizure, Psych: Negative for depression, anxiety, suicide ideation, homicidal ideation, and hallucinations. 11:02 MS/extremity: Positive for rash, tenderness, of the lateral aspect of left calf and medial aspect of left calf. 11:02 Skin: Positive for rash, of the lateral aspect of left calf and medial aspect of left calf. Exam: 11:04 Head/Face: Normocephalic, atraumatic. Eyes: Pupils equal round and reactive to light, snw extra-ocular motions intact. Lids and lashes normal. Conjunctiva and sclera are non-icteric and not injected. Cornea within normal limits. Periorbital areas with no swelling, redness, or edema. ENT: Nares patent. No nasal discharge, no septal abnormalities noted. Tympanic membranes are normal and external auditory canals are clear. Oropharynx with no redness, swelling, or masses, exudates, or evidence of obstruction, uvula midline. Mucous membranes moist. Neck: Trachea midline, no thyromegaly or masses palpated, and no cervical lymphadenopathy. Supple, full range of motion without nuchal rigidity, or vertebral point tenderness. No Meningismus. Chest/axilla: Normal chest wall appearance and motion. Nontender with no deformity. No lesions are appreciated. Cardiovascular: Regular rate and rhythm with a normal S1 and S2. No gallops, murmurs, or rubs. Normal PMI, no JVD. No pulse deficits. Respiratory: Lungs have equal breath sounds bilaterally, clear to auscultation and percussion. No rales, rhonchi or wheezes noted. No increased work of breathing, no retractions or nasal flaring. Abdomen/GI: Soft, non-tender, with normal bowel sounds. No distension or tympany. No guarding or rebound. No evidence of tenderness throughout. Back: No spinal tenderness. No costovertebral tenderness. Full range of motion. MS/ Extremity: Pulses equal, no cyanosis. Neurovascular intact. Full, normal range of motion. Neuro: Awake and alert, GCS 15, oriented to person, place, time, and situation. Cranial nerves II-XII grossly intact. Motor strength 5/5 in all extremities. Sensory grossly intact. Cerebellar exam normal. Normal gait. Psych: Awake, alert, with orientation to person, place and time. Behavior, mood, and affect are within normal limits. 11:04 Constitutional: The patient appears in no acute distress, alert, awake, obese. 11:04 Skin: Appearance: normal except for affected area, fungal lower ext rash with pruritis. Vital Signs: 10:49 BP 165 / 118; Pulse 79; Resp 18; Temp 98.2; Pulse Ox 100% ; Weight 158.76 kg; Height 6 hb ft. 2 in. ; Pain 4/10; 12:40 BP 166 / 94; Pulse 78; Resp 20; Pulse Ox 96% on R/A; mb9 10:49 Body Mass Index 44.94 (158.76 kg, 187.96 cm) hb 10:49 Pain Scale: Adult hb MDM: 10:45 Patient medically screened. snw 11:05 Differential diagnosis: contusion, abrasion, tendonitis, cellulitis, fungal infection. snw Data reviewed: vital signs, nurses notes. Counseling: I had a detailed discussion with the patient and/or guardian regarding: the historical points, exam findings, and any diagnostic results supporting the discharge/admit diagnosis, radiology results, the need for outpatient follow up, for definitive care. Special discussion: I have referred the patient to see his PCP for further evaluation of high blood pressure. Based on the history and exam findings, there is no indication for further emergent testing or inpatient evaluation. I discussed with the patient/guardian the need to see the paste mixer liquid for further evaluation of the symptoms. I discussed with the patient/guardian the need to see the primary care provider for further evaluation of the symptoms. 02/24 11:01 Order name: US Extremity Venous Unilateral Ltd; Complete Time: 11:44 snw 02/24 11:59 Order name: Recheck B/P; Complete Time: 12:38 snw Administered Medications: 12:30 Drug: Fluconazole PO 400 mg Route: PO; mb9 12:42 Follow up: Response: No adverse reaction mb9 12:30 Drug: ZyrTEC - Cetirizine PO 10 mg Route: PO; mb9 12:42 Follow up: Response: No adverse reaction mb9 12:30 Drug: Famotidine PO 20 mg Route: PO; mb9 12:42 Follow up: Response: No adverse reaction mb9 Disposition Summary: 02/24/23 12:00 Discharge Ordered Location: Home snw Condition: Stable snw Diagnosis - Rash and other nonspecific skin eruption snw Followup: snw - With: Emergency Department - When: As needed - Reason: Worsening of condition Followup: snw - With: Hubert Hernandez DO - When: 2 - 3 days - Reason: Recheck today's complaints, Continuance of care, Re-evaluation by your physician Discharge Instructions: - Discharge Summary Sheet snw - Rash, Adult snw Forms: - Medication Reconciliation Form snw - Thank You Letter snw - Antibiotic Education snw - Prescription Opioid Use snw - Work release form mb9 Prescriptions: - Zyrtec 10 mg Oral Tablet - take 1 tablet by ORAL route once daily As needed; 20 tablet; Refills: 0, snw Product Selection Permitted - Cipro 500 mg Oral Tablet - take 1 tablet by ORAL route every 12 hours for 7 days; 14 tablet; Refills: 0, snw Product Selection Permitted - Nystatin-Triamcinolone 100,000-0.1 unit/gram-% Topical Ointment - apply 1 application by TOPICAL route 2 times per day; 50 gram; Refills: 0, snw Product Selection Permitted - Pepcid 20 mg Oral Tablet - take 1 tablet by ORAL route once daily; 20 tablet; Refills: 0, Product snw Selection Permitted Signatures: Dispatcher [employer] EDMS Lashay Logan, EMERGENCY DEPARTMENT-C EMERGENCY DEPARTMENT-Csnw Pauline Gunter, RN RN Greta Victoria RN RN mb9
--- NOTE | 2023-02-24 12:01 | ER ---
Nurse's Notes [facility] Name: Patricio Zamora Age: 42 yrs Sex: Male : 1980 Arrival Date: 02/24/2023 Time: 10:40 Bed 12 Private MD: Hubert Hernandez Diagnosis: Rash and other nonspecific skin eruption Presentation: 02/24 10:49 Chief complaint: Left lower leg redness x 1 week. Hx of cellulitis in same area. hb Coronavirus screen: At this time, the client does not indicate any symptoms associated with coronavirus-19. Ebola Screen: No symptoms or risks identified at this time. Initial Sepsis Screen: Does the patient meet any 2 criteria? No. Patient's initial sepsis screen is negative. Does the patient have a suspected source of infection? No. Patient's initial sepsis screen is negative. Risk Assessment: Do you want to hurt yourself or someone else? Patient reports no desire to harm self or others. Onset of symptoms was February 18, 2023. 10:49 Method Of Arrival: Ambulatory hb 10:49 Acuity: DOMINGO 3 hb Historical: - Allergies: 10:50 No Known Allergies; hb - Home Meds: 10:50 metoprolol tartrate 25 mg Oral tablet every 12 hours [Active]; hb - PMHx: 10:50 hypertension; hb - PSHx: 10:50 Cholecystectomy; hb - Immunization history:: Adult Immunizations up to date. - Social history:: Smoking status: Patient/guardian denies using tobacco. Screenin:41 [facility] ED Fall Risk Assessment (Adult) History of falling in the last 3 months, mb9 including since admission No falls in past 3 months (0 pts) Confusion or Disorientation No (0 pts) Intoxicated or Sedated No (0 pts) Impaired Gait No (0 pts) Mobility Assist Device Used No (0 pt) Altered Elimination No (0 pt) Score/Fall Risk Level 0 - 2 = Low Risk Oriented to surroundings, Maintained a safe environment, Educated pt \T\ family on fall prevention, incl call for assistance when getting out of bed. Abuse screen: Denies threats or abuse. Nutritional screening: No deficits noted. Tuberculosis screening: No symptoms or risk factors identified. Assessment: 12:40 General: Appears in no apparent distress. Behavior is calm, cooperative. Pain: Denies mb9 pain. Neuro: Briceno Agitation-Sedation Scale (RASS): 0 - Alert and Calm Level of Consciousness is awake, alert, obeys commands. Cardiovascular: Patient's skin is warm and dry. Respiratory: Airway is patent Respiratory effort is even, unlabored, Respiratory pattern is regular, symmetrical. Derm: Rash noted that is red, on left leg and lateral aspect of left calf and medial aspect of left calf. Musculoskeletal: Range of motion: intact in all extremities. Vital Signs: 10:49 BP 165 / 118; Pulse 79; Resp 18; Temp 98.2; Pulse Ox 100% ; Weight 158.76 kg; Height 6 hb ft. 2 in. ; Pain 4/10; 12:40 BP 166 / 94; Pulse 78; Resp 20; Pulse Ox 96% on R/A; mb9 10:49 Body Mass Index 44.94 (158.76 kg, 187.96 cm) hb 10:49 Pain Scale: Adult hb ED Course: 10:42 Patient arrived in ED. am2 10:42 Hubert Hernandez DO is Private Physician. am2 10:45 Lashay Logan FNP-C is PHCP. snw 10:45 Rajan Melvin MD is Attending Physician. snw 10:50 Triage completed. hb 10:50 Arm band placed on. hb 11:20 US Extremity Venous Unilateral Ltd In Process Unspecified. EDMS 12:00 Hubert Hernandez DO is Referral Physician. snw 12:05 Placed in gown. Bed in low position. Call light in reach. Side rails up X 1. Client mb9 placed on continuous cardiac and pulse oximetry monitoring. NIBP monitoring applied. 12:41 No provider procedures requiring assistance completed. Patient did not have IV access mb9 during this emergency room visit. 12:42 Greta Victoria, SERGEY is Primary Nurse. mb9 Administered Medications: 12:30 Drug: Fluconazole PO 400 mg Route: PO; mb9 12:42 Follow up: Response: No adverse reaction mb9 12:30 Drug: ZyrTEC - Cetirizine PO 10 mg Route: PO; mb9 12:42 Follow up: Response: No adverse reaction mb9 12:30 Drug: Famotidine PO 20 mg Route: PO; mb9 12:42 Follow up: Response: No adverse reaction mb9 Medication: 12:42 VIS not applicable for this client. mb9 Outcome: 12:00 Discharge ordered by MD. olson 12:42 Discharged to home ambulatory. mb9 12:42 Condition: stable 12:42 Discharge instructions given to patient, Instructed on discharge instructions, follow up and referral plans. Demonstrated understanding of instructions, follow-up care, medications, Prescriptions given X 4. 12:42 Patient left the ED. mb9 Signatures: Dispatcher [employer] EDMS Lashay Logan, [employer]CK[employer] SE[employer]ER-C [facility] SE[facility]-Csnw Pauline Gunter, RN RN Ruthann Zaidi Mary Beth RN RN mb9 Corrections: (The following items were deleted from the chart) 10:58 10:49 BP 115 / 118; Pulse 79bpm; Resp 18bpm; Pulse Ox 100%; Temp 98.2F; 158.76 kg; hb Height 6 ft. 2 in.; BMI: 44.9; Pain 4/10, Adult; hb
[2023-02-24] MEDS ORDERED: FLUCONAZOLE 100 MG TAB ONE (12:42)
[2023-02-24] MEDS ORDERED: CETIRIZINE HCL 5 MG TABLET ONE (12:42)
[2023-02-24] MEDS ORDERED: FAMOTIDINE 20 MG TAB ONE (12:42)
[2023-02-24 12:47] VITALS: TEMP 98.2
[2023-02-24 12:49] VITALS: BP 166/94; O2SAT 96
== END 2023-02-24 12:42 | disposition home or self-care (01) ==
LOC: ER 10:40
DX: R21 Rash and other nonspecific skin eruption (principal); I10 Essential (primary) hypertension
CPT/HCPCS: 93971; 99283

== ENCOUNTER 2023-03-03 10:24 | Inpatient (IN) | payer OTHER ==
--- NOTE | 2023-03-03 10:42 | EDPHYS ---
Physician Documentation [facility] Name: Patricio Zamora Age: 42 yrs Sex: Male : 1980 Arrival Date: 03/03/2023 Time: 10:24 Bed 17 Private MD: ED Physician Carl Morgan HPI: 03/03 10:44 This 42 yrs old Male presents to ER via Ambulatory with complaints of Leg Swelling. ms3 10:44 42-year-old male with past medical history of hypertension presents for left lower ms3 extremity cellulitis. Patient was seen in the emergency department last week and started on Cipro and nystatin. Patient states his symptoms slightly resolved and then became worse after stopping antibiotics. Patient states his pain is a 1/10. Patient denies alleviating or inciting factors. Historical: - Allergies: 14:27 No Known Allergies; ap3 - Home Meds: 10:43 metoprolol tartrate 25 mg Oral tablet every 12 hours [Active]; db - PMHx: 10:43 Hypertension; db - PSHx: 10:43 Cholecystectomy; db - Immunization history:: Adult Immunizations unknown. - Social history:: Smoking status: Patient/guardian denies using tobacco, the patient reports quitting approximately 3 years ago. ROS: 10:44 Constitutional: Negative for fever, and chills. Neck: Negative for injury, pain, and ms3 swelling, Cardiovascular: Negative for chest pain, and palpitations. Respiratory: Negative for shortness of breath, cough, wheezing, and pleuritic chest pain, Abdomen/GI: Negative for abdominal pain, nausea, vomiting, diarrhea, and constipation. 10:44 Neuro: Negative for headache, weakness, numbness, tingling. 10:44 Skin: Positive for cellulitis, rash. 10:44 All other systems are negative. Exam: 10:44 Constitutional: This is a well developed, well nourished patient who is awake, alert, ms3 and in no acute distress. Head/Face: Normocephalic, atraumatic. Neck: Trachea midline, no cervical lymphadenopathy. Supple, full range of motion without nuchal rigidity, or vertebral point tenderness. No Meningismus. Chest/axilla: Normal chest wall appearance and motion. Nontender with no deformity. Cardiovascular: Regular rate and rhythm with a normal S1 and S2. No gallops, murmurs, or rubs. Normal PMI, no JVD. No pulse deficits. Respiratory: Lungs have equal breath sounds bilaterally, clear to auscultation and percussion. No rales, rhonchi or wheezes noted. No increased work of breathing, no retractions or nasal flaring. Abdomen/GI: Soft, non-tender, with normal bowel sounds. No distension or tympany. No guarding or rebound. No evidence of tenderness throughout. 10:44 Skin: cellulitis, that is moderate, confluent, well demarcated, on the left leg. Vital Signs: 10:40 BP 160 / 93; Pulse 81; Resp 18; Temp 98.2(O); Pulse Ox 98% on R/A; Weight 158.76 kg; db Height 6 ft. 2 in. ; 13:37 BP 159 / 94; Pulse 73; Resp 18; Pulse Ox 94% on R/A; ap3 10:40 Body Mass Index 44.94 (158.76 kg, 187.96 cm) db MDM: 10:40 Patient medically screened. ms3 10:44 Differential diagnosis: Cellulitis vs Fungal infection vs Venous insufficiency. ms3 11:59 Data reviewed: vital signs, nurses notes, lab test result(s). Consideration of ms3 Admission/Observation Patient was admitted/placed on observation. Management of patient was discussed with the following: Hospitalist: . I considered the following discharge prescriptions or medication management in the emergency department Medications were administered in the Emergency Department. See MAR. Counseling: I had a detailed discussion with the patient and/or guardian regarding: the historical points, exam findings, and any diagnostic results supporting the discharge/admit diagnosis, lab results, the need for further work-up and treatment in the hospital. ED course: Discussed necessity for admission due to failed outpatient antibiotics with patient. Patient understands agrees with plan. All questions were answered.. 03/03 10:40 Order name: CBC with Diff; Complete Time: 11:25 ms3 03/03 10:40 Order name: BMP; Complete Time: :25 ms3 03/03 10:40 Order name: Blood Culture Adult (2) ms3 03/03 12:02 Order name: Hemoglobin A1c; Complete Time: 13:00 EDMS 03/03 12:02 Order name: Lipid Profile; Complete Time: 13:00 EDMS 03/03 12:06 Order name: Magnesium EDMS 03/03 12:06 Order name: Phosphorus EDMS 03/03 12:06 Order name: Urinalysis w/ reflexes EDMS 03/03 12:06 Order name: Basic Metabolic Panel EDMS 03/03 12:06 Order name: Basic Metabolic Panel EDMS 03/03 12:06 Order name: CBC with Automated Diff EDMS 03/03 12:06 Order name: CBC with Automated Diff EDMS 03/03 12:06 Order name: Heart Healthy EDMS Administered Medications: 11:27 Drug: vancoMYCIN IVPB 1 grams Route: IVPB; Infused Over: 2 hrs; Site: right antecubital;ap3 14:56 Follow up: IV Status: Completed infusion ap3 Disposition Summary: 03/03/23 10:42 Hospitalization Ordered Hospitalization Status: Inpatient Admission ms3 Provider: Luz Apple ms3 Location: Telemetry/MedSurg (Inpatient) ms3 Condition: Stable ms3 Problem: new ms3 Symptoms: are unchanged ms3 Bed/Room Type: Standard ms3 Room Assignment: 428(03/03/23 14:18) ja Diagnosis - Cellulitis of left lower limb ms3 - Essential (primary) hypertension ms3 Forms: - Medication Reconciliation Form ms3 - SBAR form ms3 Signatures: Dispatcher [employer] EDMS Jarod Segura RN RN ja1 Ruthann Bearden RN RN ap3 Carl Morgan DO DO ms3 Candie Valera RN RN db Corrections: (The following items were deleted from the chart) 14:18 10:42 ms3 ja1
--- OUTSIDE RECORDS SUMMARY | 2023-03-03 10:47 | XMS REPORT | Continuity of Care Document ---
:1980 Author Organization [facility] t Address [address] [place] [address] Care Team Providers Name Role Phone PAULY GUTIERREZ Attending Clinician Unavailable [id number] Attending Clinician Unavailable Payers Payer Name Policy Type Policy Number Effective Date Expiration Date S bebe [facility] 2 [id number] 2022 00:00:00 Problems Condition Condition Condition Status [...] BROOKE Mantilla ld - Alcohol Std Drinks Life Enrichment Manager al History BROOKE erazo - Alcohol Binge [...] Date Date Medication? Clinician (SIG) Name Name RENE 2021-09 Yes [id number] .25mg Inject Seth sey (0.25 or 1-30 0.25 mg Seybold 0.5 00:00: into the - mg/dose) 2 00 skin once Exte rna mg/1.5 mL a week l SQ Solution Pen-Injecto r Metoprolol 2021-09 Yes [id number] 50mg Take 1 K elsey Succinate 1-30 tablet (50 Seyb old 50 MG oral 00:00: mg total) - TABLET SR 00 by mouth Life Enrichment Manager a 24 HR daily l Ondansetron 2021-09 Yes [id number] 4mg [id number] Take 1 Cindy (ZOFRAN) 4 1-30 [id number] tablet (4 Seybold MG oral 00:00: 3D mg total) - TABLET 00 by mouth Externa DISPERSIBLE every 8 l hours as needed for nausea Liraglutide 2021-09- No [id number] Inject 0.1 Cindy -Weight 1-11 11-30 mL (0.6 mg Seybo ld Management 00:00: 00:00 total) - (Saxenda) 00 :00 into the Life Enrichment Manager a 18 MG/3ML skin daily l subcutaneou Inject 0.6 s Solution mg subcu Pen-injecto daily for r 1 week then increase the dose to 1.2 mg daily for a week. Then, increase dose to 1.8 mg subcu daily for 1 week. Then, increase dose to max dose of 3 mg subcu daily. Metoprolol 2021-09 Yes [id number] 1{tbl} Take 1 Cindy Succinate 0-27 tablet by Seybo ld 50 MG oral 00:00: mouth - Capsule ER 00 daily Externa 24 Hour l Sprinkle OZEMPIC 2021-09 Yes [id number] .25mg Inject Ke lsey (0.25 or 0-27 0.25 mg Seybold 0.5 00:00: into the - mg/dose) 2 00 skin once Exte rna mg/1.5 mL a week l SQ Solution Pen-Injecto r Metoprolol 2021-09- No [id number] 1{tbl} Take 1 Cindy Succinate 08-21 tablet by Jenn pérez 50 MG oral 00:00: 00:00 mouth [...] BMI 2022-07-18 15:05:00 48.28 kg/m2 Cindy Rodriguez eybruce - External Procedures This patient has no known procedures. Encounters Start End Encounter Admission Attending Care Care Encounter Source Date/Time Date/Time Type Type Clinicians Facility Department ID 2022-09-02 2022-09-02 Outpatient CINDY GUTIERREZ [id number] Cindy 00:00:00 00:00:00 PAULY Seybol d 2022-08-21 2022-08-21 Outpatient CINDY GUTIERREZ [id number] Cindy 09:30:00 09:30:00 PAULY Seybol d 2022-08-09 2022-08-09 Outpatient CINDY GUTIERREZ [id number] Cindy 10:00:00 10:00:00 PAULY Seybol d 2022-07-30 2022-07-30 Outpatient CINDY GUTIERREZ [id number] Cindy 00:00:00 00:00:00 PAULY Seybol d 2022-07-26 2022-07-26 Outpatient CINDY GUTIERREZ [id number] Cindy 00:00:00 00:00:00 PAULY Seybol d 2022-07-22 2022-07-22 Outpatient CINDY GUTIERREZ [id number] Cindy 00:00:00 00:00:00 PAULY Seybol d 2022-07-18 2022-07-18 Outpatient LAB90 CINDY WHITE [id number] Cindy 10:45:00 10:45:00 Seybol d 2022-07-18 2022-07-18 Outpatient CINDY GUTIERREZ [id number] Cindy 10:00:00 10:00:00 PAULY Seybol d 2022-07-18 2022-07-18 Outpatient CINDY GUTIERREZ [id number] Cindy 00:00:00 00:00:00 PAULY Seybol d Results This patient has no known results.
[2023-03-03 11:10] LABS: Absolute Lymphocytes (CBC) 2.1 K/uL (0.7-4.9); Hematocrit 43.1 % (39.6-49.0); Lymphocytes % 23.2 % (15.3-44.8); MCV 80.9 fL (80-100); RBC Red Blood Cell Count 5.32 M/uL (4.33-5.43)
[2023-03-03 11:24] LABS: Potassium 3.4 mEq/L (3.5-5.1)
[2023-03-03] MEDS ORDERED: ACETAMINOPHEN 325 MG TABLET PO PRN (11:55)
[2023-03-03] MEDS ORDERED: HYDROCODONE/APAP 5/325 MG TAB PO PRN (11:55)
[2023-03-03] MEDS ORDERED: ONDANSETRON 4 MG/2 ML VIAL IV PRN (12:02)
--- NOTE | 2023-03-03 12:04 | P.HP ---
Certification for Inpatient Patient admitted to: Inpatient With expected LOS: >2 Midnights Patient will require the following post-hospital care: None Practitioner: I am a practitioner with admitting privileges, knowledge of patient current condition, hospital course, and medical plan of care. Services: Services provided to patient in accordance with Admission requirements found in Title 42 Section 412.3 of the Code of Federal Regulations Patient History Date of Service: 03/03/23 Reason for admission: LLE sweling\Redness History of Present Illness: Patient is a 42-year-old male with a past medical history significant for anxiety disorder, hypertension, GERD, obesity who presents with complaint of left lower extremity swelling\redness. Patient reported that he noticed a mosquito bite 3 weeks ago and started having redness thereafter. Patient reported that redness\swelling became worse over time. Patient was seen to the hospital 1 week ago and was prescribed antibiotics. Patient reported that he completed the prescribed antibiotics. Patient reported that he has been delineating the size of the redness on his lower extremity but overnight patient noticed increased swelling and redness. Patient denies any pain or any other signs or symptoms. Symptoms are aggravated or relieved by nothing. Patient decide to present to the hospital due to worsening symptoms.. Allergies No Known Allergies Allergy (Unverified 05/20/18 07:36) Home Medications: Aspirin [Aspirin EC 81 MG] 81 mg PO DAILY #30 tablet. 01/25/21 ALPRAZolam [Xanax*] 0.25 mg PO BID PRN #30 tab 02/20/21 Metoprolol Tartrate [Lopressor] 25 mg PO BID #60 tablet 02/20/21 Pantoprazole [Protonix Tab*] 40 mg PO DAILY #30 tab 02/20/21 - Past Medical/Surgical History -: HTN -: GERD -: CHOLECYSTECTOMY - Family History Father -: Hypertension, Other (see notes) Notes: LEUKEMIA Mother -: Hypertension - Social History Smoking Status: Never smoker Alcohol use: Yes CD- Drugs: No Caffeine use: Yes Place of Residence: Home Review of Systems General: Unremarkable Eyes: Unremarkable ENT: Unremarkable Respiratory: Unremarkable Cardiovascular: Unremarkable Gastrointestinal: Unremarkable Genitourinary: Unremarkable Musculoskeletal: Other (LLE swelling ) Integumentary: Other (LLE redness) Neurological: Unremarkable Lymphatics: Unremarkable Physical Examination - Physical Exam General: Alert, In no apparent distress, Oriented x3, Cooperative HEENT: Atraumatic, PERRLA, Mucous membr. moist/pink, EOMI, Sclerae nonicteric Neck: Supple, 2+ carotid pulse no bruit, No LAD, Without JVD or thyroid abnormality Respiratory: Clear to auscultation bilaterally, Normal air movement Cardiovascular: Regular rate/rhythm, Normal S1 S2, Edema Capillary refill: <2 Seconds Gastrointestinal: Normal bowel sounds, Soft and benign, Non-distended, No tenderness Musculoskeletal: No clubbing, No tenderness, Swelling Integumentary: No rashes, No significant lesion, Tenderness/swelling (LLE) Neurological: Normal gait, Normal speech, Normal strength at 5/5 x4 extr, Normal tone, Normal affect Lymphatics: No axilla or inguinal lymphadenopathy - Studies Laboratory Data (last 24 hrs) 03/03/23 11:01: Sodium 140, Potassium 3.4 L, BUN 10, Creatinine 1.05, Glucose 134 H 03/03/23 11:01: WBC 9.20, Hgb 14.7, Hct 43.1, Plt Count 359 Assessment and Plan - Plan --Left lower extremity cellulitis. Failed outpatient therapy. Infectious disease MD consulted. Patient placed on antibiotics. Blood cultures pending. We will await further recommendation from infectious disease MD. --Anxiety disorder. Continue home medication. --Hypertension. Stable. Continue home medications and hydralazine as needed. --GERD. Continue Protonix. --Obesity. Likely secondary to excess calories intake. Patient counseled on weight reduction, diet and excise therapy. --Hypokalemia. Replete as needed. -- Dyslipidemia. Further management per patient's PCP outpatient. --DVT prophylaxis with Lovenox subQ. Discharge Plan: Home Plan to discharge in: Greater than 2 days - Advance Directives Does patient have a Living Will: No Does patient have a Durable POA for Healthcare: No - Code Status/Comfort Care Code Status Assessed: Yes Physician Review: Patient Assessed, Agree with Above Assessment and Plan Critical Care: No
[2023-03-03] MEDS ORDERED: POTASSIUM CL SA 10 MEQ TAB PO ONE (12:30)
[2023-03-03] MEDS ORDERED: HYDRALAZINE HCL 20 MG/ML VIAL IV PRN (12:54)
[2023-03-03] MEDS ORDERED: AMPICILLIN/SULBACT 3 GM in NA CHLORIDE 0.9% 100 ML IV SCH (13:00)
--- NOTE | 2023-03-03 14:40 | P.CNS ---
Date of Consult: 03/03/23 Reason for Consult: Cellulitis Chief Complaint: LLE sweling\Redness History of Present Illness: Patient is a 42-year-old male with a past medical history significant for anxiety disorder, hypertension, GERD and obesity who presents with complaints of left lower extremity swelling and redness. Patient reported that he noticed a mosquito bite 3 weeks ago and started having redness thereafter. Patient reported that redness\swelling became worse over time. He was seen in the ED 1 week ago and was prescribed Ciprofloxacin for 7 days. Patient reports that he completed the 7 day course of Cipro yesterday. Patient reported that he has been delineating the size of the redness on his lower extremity but overnight patient noticed increased swelling and redness. Patient denies any pain. He reports pruritis of left lower extremity. Symptoms are aggravated or relieved by nothing. Patient decide to present to the hospital due to worsening symptoms. Allergies No Known Allergies Allergy (Unverified 05/20/18 07:36) Home medications list reviewed: Yes Home Medications: Aspirin [Aspirin EC 81 MG] 81 mg PO DAILY #30 tablet. 01/25/21 ALPRAZolam [Xanax*] 0.25 mg PO BID PRN #30 tab 02/20/21 Metoprolol Tartrate [Lopressor] 25 mg PO BID #60 tablet 02/20/21 Pantoprazole [Protonix Tab*] 40 mg PO DAILY #30 tab 02/20/21 - Past Medical/Surgical History -: HTN -: GERD -: CHOLECYSTECTOMY - Family History Father Medical History: Hypertension, Other (see notes) Notes: LEUKEMIA Mother Medical History: Hypertension - Social History Smoking Status: Current every day smoker, Former smoker Alcohol use: Yes CD- Drugs: No Caffeine use: Yes Place of Residence: Home Review of Systems 10-point ROS is otherwise unremarkable Integumentary: As per HPI Physical Examination General: Alert, In no apparent distress, Oriented x3 HEENT: Atraumatic, Normocephalic, PERRLA Neck: Supple, JVD not distended Respiratory: Clear to auscultation bilaterally, Normal air movement Cardiovascular: No edema, Normal pulses Gastrointestinal: Normal bowel sounds, Soft and benign Musculoskeletal: No clubbing, No swelling Integumentary: Erythema (LLE), Other (Cellulitis LLE) Neurological: Normal gait, Normal speech, Normal tone, Normal affect Laboratory Data - Pending Microbiology Data - Pending Imagings Data: - no imaging recorded Conclusions/Impression: Problem List Cellulitis, left lower extremity Hypertension Obesity Hyperlipidemia Cellulitis LLE - Patient completed 7 day course of Cipro at home with no improvement of LLE redness - Denies any pain at the site. Reports itchiness LLE. - Started on Unasyn 03/03 - Blood cultures 03/03: Pending Recommendations - Continue Unasyn for now. Will reevaluate and adjust to PO antibiotic as appropriate. - Keep left leg elevated ID will follow up and monitor patient closely. Case discussed with Guy Cantu
--- NOTE | 2023-03-03 16:01 | ER ---
Nurse's Notes [facility] Name: Patricio Zamora Age: 42 yrs Sex: Male : 1980 Arrival Date: 03/03/2023 Time: 10:24 Bed 17 Private MD: Diagnosis: Cellulitis of left lower limb;Essential (primary) hypertension Presentation: 03/03 10:40 Chief complaint: Patient states: Patient has left lower leg redness. Completed db antibiotics but redness has increased and has swelling. Coronavirus screen: Vaccine status: Patient reports receiving the 2nd dose of the covid vaccine. Client denies travel out of the [place] in the last 14 days. At this time, the client does not indicate any symptoms associated with coronavirus-19. Ebola Screen: Patient negative for fever greater than or equal to 101.5 degrees Fahrenheit, and additional compatible Ebola Virus Disease symptoms Patient denies exposure to infectious person. Patient denies travel to an Ebola-affected area in the 21 days before illness onset. No symptoms or risks identified at this time. Initial Sepsis Screen: Does the patient meet any 2 criteria? No. Patient's initial sepsis screen is negative. Does the patient have a suspected source of infection? Yes: Skin breakdown/wound. Risk Assessment: Do you want to hurt yourself or someone else? Patient reports no desire to harm self or others. Onset of symptoms was March 03, 2023. 10:40 Method Of Arrival: Ambulatory db 10:40 Acuity: DOMINGO 3 db Triage Assessment: 10:45 General: Appears in no apparent distress. comfortable, Behavior is calm, cooperative. db Pain: Complains of pain in left leg. Neuro: Level of Consciousness is awake, alert, obeys commands, Oriented to person, place, time, situation, Speech is normal. Respiratory: No deficits noted. Airway is patent Respiratory effort is even, unlabored, Respiratory pattern is regular, symmetrical. GI: No deficits noted. Derm: Skin is red. Musculoskeletal: No deficits noted. No signs and/or symptoms reported regarding the musculoskeletal system. Historical: - Allergies: 14:27 No Known Allergies; ap3 - Home Meds: 10:43 metoprolol tartrate 25 mg Oral tablet every 12 hours [Active]; db - PMHx: 10:43 Hypertension; db - PSHx: 10:43 Cholecystectomy; db - Immunization history:: Adult Immunizations unknown. - Social history:: Smoking status: Patient/guardian denies using tobacco, the patient reports quitting approximately 3 years ago. Screenin:08 [facility] ED Fall Risk Assessment (Adult) History of falling in the last 3 months, ap3 including since admission No falls in past 3 months (0 pts). Abuse screen: Denies threats or abuse. Nutritional screening: No deficits noted. Tuberculosis screening: No symptoms or risk factors identified. Assessment: 10:46 Reassessment: SEE TRIAGE FOR INITIAL ASSESSMENT. db 14:31 Reassessment: attempted to call report. was informed the receiving nurse would return ap3 my call. 14:55 Reassessment: attempted to call report. was informed the receiving nurse would return ap3 my call. 15:11 Reassessment: report given to receiving nurse. ap3 Vital Signs: 10:40 BP 160 / 93; Pulse 81; Resp 18; Temp 98.2(O); Pulse Ox 98% on R/A; Weight 158.76 kg; db Height 6 ft. 2 in. ; 13:37 BP 159 / 94; Pulse 73; Resp 18; Pulse Ox 94% on R/A; ap3 10:40 Body Mass Index 44.94 (158.76 kg, 187.96 cm) db ED Course: 10:27 Patient arrived in ED. mr 10:33 Carl Morgan DO is Attending Physician. ms3 10:41 Luz Apple MD is Hospitalizing Provider. ms3 10:43 Triage completed. db 10:45 Arm band placed on Patient placed in an exam room. db 11:01 Initial lab(s) drawn, by me, sent to lab. First set of blood cultures drawn. ap3 11:08 Patient has correct armband on for positive identification. Bed in low position. Call ap3 light in reach. Pulse ox on. NIBP on. Door closed. Noise minimized. 11:08 Inserted saline lock: 20 gauge in right antecubital area, using aseptic technique. ap3 Blood collected. 11:08 No provider procedures requiring assistance completed. ap3 11:09 Second set of blood cultures drawn by me. ap3 11:27 Ruthann Bearden, SERGEY is Primary Nurse. ap3 13:37 Patient admitted, IV remains in place. ap3 Administered Medications: 11:27 Drug: vancoMYCIN IVPB 1 grams Route: IVPB; Infused Over: 2 hrs; Site: right antecubital;ap3 14:56 Follow up: IV Status: Completed infusion ap3 Medication: 13:37 VIS not applicable for this client. ap3 Outcome: 10:42 Decision to Hospitalize by Provider. ms3 13:37 Admitted to Med/surg ap3 13:37 Condition: good 13:37 Instructed on the need for admit. 16:00 Patient left the ED. ap3 Signatures: Greta Weinberg Amanda, RN RN ap3 Carl Morgan DO DO ms3 Candie Valera, RN RN db
[2023-03-03 16:04] LABS: Magnesium 2.2 mg/dL (1.6-2.4); Phosphorus 2.4 mg/dL (2.5-4.9)
[2023-03-03 16:28] VITALS: BMI 44.9
[2023-03-03] MEDS: POTASS/SODIUM PHOSPHATE 1 PKT POWD.PACK PO SCH ×3 (20:51→22:23)
[2023-03-03] MEDS: AMPICILLIN/SULBACT 3 GM in NA CHLORIDE 0.9% 100 ML IV SCH (21:46)
[2023-03-04] MEDS: AMPICILLIN/SULBACT 3 GM in NA CHLORIDE 0.9% 100 ML IV SCH ×4 (04:36→21:02)
[2023-03-04] MEDS ORDERED: dexAMETHasone 4 MG/ML VIAL IV ONE (05:20)
[2023-03-04 05:38] LABS: Specific Gravity 1.014 (1.005-1.030); Urine Bacteria None Seen /HPF (<20); Urine Bilirubin NEGATIVE (Negative); Urine Blood Negative (Negative); Urine Clarity Clear (Clear); Urine Color Light-Yellow (Yellow); Urine Glucose NEGATIVE (Negative); Urine Mucus Slight /HPF (None Seen); Urine Protein NEGATIVE (Negative); Urine RBC <5 /HPF (None Seen); Urine Urobilinogen Normal (Normal); Urine pH 6.5 (5.0-7.0)
[2023-03-04 06:08] LABS: Absolute Lymphocytes (CBC) 2.9 K/uL (0.7-4.9); Hematocrit 43.5 % (39.6-49.0); Lymphocytes % 28.2 % (15.3-44.8); MCV 81.1 fL (80-100); MPV 8.1 fL (7.6-11.3); RBC Red Blood Cell Count 5.37 M/uL (4.33-5.43)
[2023-03-04 06:27] LABS: Potassium 3.4 mEq/L (3.5-5.1)
[2023-03-04] MEDS: ASPIRIN 81 MG CHEWABLE TABLET PO SCH (07:57)
[2023-03-04] MEDS: ENOXAPARIN 40 MG/0.4 ML SQ SCH (07:57)
[2023-03-04 08:42] VITALS: O2SAT 98
[2023-03-04] MEDS ORDERED: POTASSIUM CL SA 10 MEQ TAB PO ONE (09:00)
--- NOTE | 2023-03-04 09:11 | P.PN ---
Date of Service: 03/04/23 Chief Complaint: LLE sweling\Redness Subjective: Patient is ambulating in hallway independently. A&Ox4. Denies any new complaints. Physical Examination Temp Pulse Resp BP Pulse Ox 97.2 F 65 16 166/86 H 96 03/04/23 07:44 03/04/23 07:44 03/04/23 07:44 03/04/23 07:44 03/04/23 07:44 General: Alert, In no apparent distress, Oriented x4 HEENT: Atraumatic, Normocephalic, PERRLA Neck: Supple, JVD not distended Respiratory: Clear to auscultation bilaterally, Normal air movement Cardiovascular: No edema, Normal pulses Gastrointestinal: Normal bowel sounds, Soft and benign Musculoskeletal: No clubbing, No swelling Integumentary: Erythema and edema of LLE. Neurological: Normal gait, Normal speech, Normal tone, Normal affect Laboratory Data - Pending Microbiology Data - Pending Imagings Data: - no imaging recorded Conclusions/Impression: Problem List Cellulitis, left lower extremity Hypertension Obesity Hyperlipidemia Cellulitis LLE - Patient completed 7 day course of Cipro at home with no improvement of LLE redness - Denies any pain at the site; reports itching. - Started on Unasyn 03/03 - Blood cultures 03/03: Pending - No leukocytosis. Eosinophils elevated 6.7. Afebrile. Recommendations Spoke with and we will try a dose of IV steroid and monitor for improvement of erythema and itching of left lower leg. - Keep left leg elevated - Switch to PO upon discharge x 7-10 days. ID will follow patient as needed. Case discussed with Guy Cantu
[2023-03-05] MEDS: AMPICILLIN/SULBACT 3 GM in NA CHLORIDE 0.9% 100 ML IV SCH ×2 (04:08→10:00)
[2023-03-05 07:04] LABS: Hematocrit 42.4 % (39.6-49.0); Lymphocytes % 23.9 % (15.3-44.8); MCV 80.9 fL (80-100); MPV 8.3 fL (7.6-11.3); RBC Red Blood Cell Count 5.25 M/uL (4.33-5.43)
[2023-03-05 07:22] LABS: Albumin 3.6 g/dL (3.4-5.0); Bilirubin Total 0.5 mg/dL (0.2-1.0); Magnesium 2.2 mg/dL (1.6-2.4); Potassium 3.3 mEq/L (3.5-5.1); Protein, Total 7.1 g/dL (6.4-8.2)
[2023-03-05] MEDS: ENOXAPARIN 40 MG/0.4 ML SQ SCH (08:19)
[2023-03-05] MEDS: ASPIRIN 81 MG CHEWABLE TABLET PO SCH (08:19)
[2023-03-05 08:24] VITALS: BP 146/71; TEMP 97.4
--- NOTE | 2023-03-05 09:32 | P.PN ---
Date of Service: 03/05/23 Chief Complaint: LLE sweling\Redness Subjective: Improving. No acute events reported overnight. Patient sitting in chair, A&Ox4. Denies any new complaints. Plan for d/c home today. Physical Examination Temp Pulse Resp BP Pulse Ox 97.4 F 75 16 146/71 H 98 03/05/23 08:00 03/05/23 08:00 03/05/23 08:00 03/05/23 08:00 03/05/23 08:00 General: Alert, In no apparent distress, Oriented x4 HEENT: Atraumatic, Normocephalic, PERRLA Neck: Supple, JVD not distended Respiratory: Clear to auscultation bilaterally, Normal air movement Cardiovascular: No edema, Normal pulses Gastrointestinal: Normal bowel sounds, Soft and benign Musculoskeletal: No clubbing, No swelling Integumentary: Erythema and edema of LLE improving. Neurological: Normal gait, Normal speech, Normal tone, Normal affect Laboratory Data - Reviewed Microbiology Data - Reviewed Imagings Data: - no imaging recorded Medications List Reviewed: Yes Conclusions/Impression: Problem List Cellulitis, left lower extremity Hypertension Obesity Hyperlipidemia Cellulitis LLE - Patient completed 7 day course of Cipro at home with no improvement of LLE redness - Denies any pain at the site; reports itching. - Started on Unasyn 03/03 - Blood cultures 03/03: No growth to date - No leukocytosis. Afebrile. Recommendations - Patient to be discharged home today on Augmentin PO x 10 days - Keep left leg elevated ID will follow patient as needed. Case discussed with Guy Cantu
[2023-03-05] MEDS ORDERED: AMOX/K CLAV 875 MG TAB PO SCH (21:00)
== END 2023-03-05 11:00 | disposition home or self-care (01) | DRG 603 ==
LOC: ER 10:24 → ERHOLD 11:53 → 4TH 15:22
PROVIDERS: ADMIT Hospitalist; ATTEND Hospitalist
DX: L03.116 Cellulitis of left lower limb (principal); Z68.41 Body mass index [BMI] 40.0-44.9, adult; I10 Essential (primary) hypertension; E78.5 Hyperlipidemia, unspecified; E87.6 Hypokalemia; K21.9 Gastro-esophageal reflux disease without esophagitis; F41.9 Anxiety disorder, unspecified; E66.09 Other obesity due to excess calories; Z71.3 Dietary counseling and surveillance; Z79.82 Long term (current) use of aspirin; Z79.899 Other long term (current) drug therapy; Z87.891 Personal history of nicotine dependence; Z90.49 Acquired absence of other specified parts of digestive tract; Z82.49 Family history of ischemic heart disease and other diseases of the circulatory system; Z80.6 Family history of leukemia
CPT/HCPCS: 36415; 80048; 80053; 80061; 81001; 83036; 83735; 84100; 84132; 84145; 85025; 87040; 94760; 96365; 96366; 99285; J0295; J0360; J1100; J1650